=== PATIENT | male | born 1930 | race African-American/Black ===

== ENCOUNTER 2018-08-24 21:28 | Inpatient (IN) | payer MEDICARE, BC ==
[2018-08-24] MEDS ORDERED: QUEtiapine TAB* 25 MG PO ONE (22:14)
--- NOTE | 2018-08-24 22:23 | ED ---
Psychiatric Complaint - HPI Summary HPI Summary: This patient is an 88 year old M brought in by police to ED with a chief complaint of dementia. Per the police, he was watching a TV show that was talking about [employer] and [employer] and how [employer] is going to start taking over everything. 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 He wanted to watch it with him but she wouldnt, so he started following her around the house. She eventually closed herself in the bedroom and called the police. Per his , he hides his medication and hasnt taken his medications for over 2 weeks. The patient rates the pain 0/10 in severity. Symptoms aggravated by nothing. Symptoms alleviated by nothing. - History Of Current Complaint Chief Complaint: EDPsychosocial Time Seen by Provider: 08/24/18 21:55 Hx Obtained From: Patient, Other: - police Onset/Duration: Sudden Onset, Lasting Hours, Still Present Timing: Constant Severity Currently: None Aggravating Factor(s): Nothing Alleviating Factor(s): Nothing Has Suicidal: Denies: Thoughts Has Homicidal: Denies: Thoughts - Allergies/Home Medications Allergies/Adverse Reactions: Allergies Allergy/AdvReac Type Severity Reaction Status Date / Time No Known Allergies Allergy Verified 08/24/18 21:40 Home Medications: Home Medications Quetiapine Fumarate [Seroquel 50 mg tab] 1 tab PO QPM 08/24/18 [History Confirmed 08/24/18] PMH/Surg Hx/FS Hx/Imm Hx Endocrine/Hematology History: Denies: Hx Sickle Cell Disease Cardiovascular History: Denies: Other Cardiovascular Problems/Disorders Respiratory History: Denies: Other Respiratory Problems/Disorders GI History: Denies: Other GI Disorders History: Denies: Other Problems/Disorders Musculoskeletal History: Denies: Other Musculoskeletal History Sensory History: Denies: Hx Contacts or Glasses, Hx Hearing Aid Opthamlomology History: Denies: Hx Contacts or Glasses Neurological History: Denies: Other Neuro Impairments/Disorders - Cancer History Cancer Type, Location and Year: prostate - Surgical History Surgery Procedure, Year, and Place: TONSILS CHILD. SEED IMPLANTATION IN PROSTATE. laproscopic ileocolectomy 03/03/13 Hx Anesthesia Reactions: No Infectious Disease History: No Infectious Disease History: Denies: Traveled Outside the [place] in Last 30 Days - Family History Known Family History: Negative: Blood Disorder - Social History Alcohol Use: Occasionally Substance Use Type: Reports: None Smoking Status (MU): Former Smoker Review of Systems Negative: Fever Neurological: Other - patient has dementia All Other Systems Reviewed And Are Negative: Yes Physical Exam - Summary Physical Exam Summary: VITAL SIGNS: Reviewed. GENERAL: Patient is a well-developed and nourished MALE who is lying comfortable in the stretcher. Patient is not in any acute respiratory distress. HEAD AND FACE: No signs of trauma. No ecchymosis, hematomas or skull depressions. No sinus tenderness. EYES: PERRLA, EOMI x 2, No injected conjunctiva, no nystagmus. EARS: Hearing grossly intact. Ear canals and tympanic membranes are within normal limits. MOUTH: Oropharynx within normal limits. NECK: Supple, trachea is midline, no adenopathy, no JVD, no carotid bruit, no c- spine tenderness, neck with full ROM. CHEST: Symmetric, no tenderness at palpation LUNGS: Clear to auscultation bilaterally. No wheezing or crackles. CVS: Regular rate and rhythm, S1 and S2 present, no murmurs or gallops appreciated. ABDOMEN: Soft, non-tender. No signs of distention. No rebound no guarding, and no masses palpated. Bowel sounds are normal. EXTREMITIES: FROM in all major joints, no edema, no cyanosis or clubbing. NEURO: No acute neurological deficits. Speech is normal and follows commands. Alert oriented x2 however he is delusional considering his talk on [employer] and [employer] SKIN: Dry and warm Triage Information Reviewed: Yes Vital Signs On Initial Exam: Initial Vitals Temp Pulse Resp BP Pulse Ox 99.6 F 114 16 196/106 97 08/24/18 21:38 08/24/18 21:38 08/24/18 21:38 08/24/18 21:38 08/24/18 21:38 Vital Signs Reviewed: Yes Diagnostics - Vital Signs Vital Signs Temp Pulse Resp BP Pulse Ox 08/24/18 21:38 99.6 F 114 16 196/106 97 - Laboratory Result Diagrams: 08/24/18 22:57 08/24/18 22:57 Lab Statement: Any lab studies that have been ordered have been reviewed, and results considered in the medical decision making process. Course/Dx - Course Assessment/Plan: This patient is an 88 year old M brought in by police to ED with a chief complaint of dementia. Per the police, he was watching a TV show that was talking about [employer] and [employer] and how [place] is going to start taking over everything. 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 He wanted to watch it with him but she wouldnt, so he started following her around the house. She eventually closed herself in the bedroom and called the police. Per his , he hides his medication and hasnt taken his medications for over 2 weeks. Patient is cleared at 0000 for MHE. MHE done at 0309. Dr. Guardado will be admitting the patient with dx of psychosis. - Differential Dx/Clinical Impression Differential Diagnosis/HQI/PQRI: Positive: Other - psychosis Provider Diagnosis: Psychosis Discharge - Sign-Out/Discharge Documenting (check all that apply): Patient Departure - admit Patient Received Moderate/Deep Sedation with Procedure: No - Discharge Plan Condition: Stable Disposition: ADMITTED TO [facility] Referrals: Stefany Duncan, SHEET CUTTING OPERATOR [Primary Care Provider] - - Attestation Statements Document Initiated by Scribe: Yes Documenting Scribe: Alexei Kaplan Provider For Whom Dianeibe is Documenting (Include Credential): Yocasta Hopson MD Scribe Attestation: Alexei Ruby, scribed for Yocasta Hopson MD on 08/25/18 at 0310. Status of Scribe Document: Ready
[2018-08-24 23:02] LABS: ABS Basophils 0 10^3/ul (0-0.2); ABS Eosinophils 0 10^3/ul (0-0.6); ABS Lymphocytes 0.7 10^3/ul (1.0-4.8); ABS Monocytes 0.7 10^3/ul (0-0.8); ABS Neutrophils 6.1 10^3/ul (1.5-7.7); ABS Nucleated RBC 0 10^3/ul; Eosinophil % 0 %; Hematocrit 37 % (42-52); Hemoglobin 12.3 g/dl (14.0-18.0); Lymphocyte % 9.4 %; Mean Corpuscular HGB Conc 33 g/dl (31-36); Mean Corpuscular Hemoglobin 30 pg (27-31); Mean Corpuscular Volume 92 fL (80-94); Mean Platelet Volume 8.3 fL (7.4-10.4); Nucleated Red Blood Cells % 0.1; Platelet Count 306 10^3/ul (150-450); Red Blood Count 4.06 10^6/ul (4.00-5.40); Red Cell Distribution Width 14 % (10.5-15); White Blood Count 7.6 10^3/ul (3.5-10.8)
[2018-08-24 23:04] LABS: Urine Appearance Clear; Urine Bilirubin Negative (Negative); Urine Blood Negative (Negative); Urine Color Yellow; Urine Glucose Negative (Negative); Urine Ketones Negative (Negative); Urine Nitrite Negative (Negative); Urine Protein Negative (Negative); Urine Specific Gravity 1.025 (1.010-1.030); Urine Urobilinogen Negative (Negative)
[2018-08-24 23:13] LABS: Barbiturates Urine Screen None Detected (None Detect); Benzodiazepine Urine Screen None Detected (None Detect); Urine Cannabinoids Screen None Detected (None Detect)
[2018-08-24 23:19] LABS: ALT 12 U/L (7-52); AST 16 U/L (13-39); Albumin 4.2 g/dL (3.2-5.2); Albumin/Globulin Ratio 1.3 (1-3); Alkaline Phosphatase 47 U/L (34-104); Anion Gap 8 mmol/L (2-11); Blood Urea Nitrogen 24 mg/dL (6-24); CO2 Carbon Dioxide 23 mmol/L (22-32); Calcium 9.7 mg/dL (8.6-10.3); Chloride 110 mmol/L (101-111); EGFR African American 97.4 (>60); EGFR Non-African American 80.5 (>60); Globulin 3.3 g/dL (2-4); Glucose 143 mg/dL (70-100); Potassium 4.1 mmol/L (3.5-5.0); Sodium 141 mmol/L (135-145); Total Protein 7.5 g/dL (6.4-8.9)
--- OUTSIDE RECORDS SUMMARY | 2018-08-24 23:21 | XMS REPORT | Continuity of Care Document ---
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 Hobbies drumming Tobacco Use Start: Unknown Smoked Briefly as A Teen. ETOH Use Avoids Alcohol Now Except Rarely. Enjoy Exercising Enjoys exercising goes to the gym every noght, does not exercise every night, he gets into the whirlpool and the sauna more than he exercises. Allergies, Adverse Reactions, Alerts Date Description Reaction Status Severity Comments 08/11/2007 Peanuts Active 09/14/2011 Peanut-containing Drug Products Active Medications Medication Date Status Form Strength Qnty SIG Indications Ordering Provider Seroquel 07/23/ Active Tablets 50mg 30tabs take one F03.91 Shawnti 2019 tablet by Damion Duncan, mouth at [employer] bedtime No Active 05/21/ Hx Unknown Medications 2017 - 2017 Seroquel 05/21/ Hx Tablets 25mg 30tabs 1 by mouth F03.91 Shawnti 2018 - every night Damion Duncan, 07/23/ at bedtime [employer] 2019 Depend 01/10/ Hx Misc 60unit wear daily, N39.3 Tomywaubreyi Fit-Flex 2016 - s change as Damion Duncan Underwearfor 05/21/ needed [employer] Men 2018 Oxybutynin 11/17/ Hx Tablets ER 5mg 90tabs take one by Stefany Chloride ER 2012 - 24HR mouth every Damion Duncan, 05/21/ day for [employer] 2018 urine leakage and frequency Cod Liver Oil 11/17/ Hx Capsules 1000mg daily Tomywcalli 2012 - Damion Duncan, 05/21/ [employer] 2018 Cipro 10/30/ Hx Tablets 250mg 10tabs 1 pill po 599.0 Stefany 2012 - bid for 5 R. 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 2012 Oxybutynin 12/23/ Hx Tablets 5mg 60tabs 1 Up To Q6H Evan Chloride 2007 - prn Urinary Lessinger 09/13/ Frequency , M.DMaggie 2011 Gentamycin 06/27/ Hx Solution 3mg/ml 5ml 2 drops qid Darlene Up 2003 - in each Soboroff, 07/16/ affected eye Manuel 2005 until clear Viagra 12/28/ Hx Tablets 50mg 6tabs 1/2-1 tab Evan 2003 - before Roxyinger 06/15/ intercourse Manuel 2004 Detrol La 12/28/ Hx Capsules 4mg 30caps 1 po qd for Evan 2003 - urinary Lessinger 08/11/ urgency , Manuel 2007 Hue Tabs 11/17/ Hx Tablets 180mg 90tabs 1 po qd Wilberto Herron 2004 - Acosta, 11/17/ Manuel 2013 Physical 04/03/ Hx DX: Stiff L Evan Therapy 2001 - Thumb Rx:as Ana 08/11/ IndicatedM.D. 2007 Upto 6 Visits Albuterol 11/21/ Hx Inhaler 2units two puffs Evan 2001 - qid and prn Ana 11/17/ Manuel 2012 Ultravate 11/21/ Hx Ointment 0.05% 15gm apply to Evan 2001 - affected [facility] 11/17/ areas qd-bid , Manuel 2012 Immunizations CPT Code Status Date Vaccine Lot # [id number] Given 04/25/2017 Zoster Vaccine [id number] Given 04/25/2017 Prevnar-13 Pneumococcal Conjugate Vaccine [id number] Given 12/29/2003 DT (Adult) [id number] Given 04/17/2002 Influenza Virus Vaccine, 3 Yrs And Above [id number] Refused 04/25/2017 Influenza Vaccine High Dose PF Vital Signs Date Vital Result Comment 07/23/2018 4:28pm Weight 146.00 lb Weight 66.226 kg BP Systolic 140 mmHg BP Diastolic 80 mmHg Heart Rate 68 /min Body Temperature 97.7 F Respiratory Rate 20 /min 06/11/2018 4:35pm Weight 142.00 lb Weight 64.411 kg BP Systolic 159 mmHg BP Diastolic 84 mmHg Heart Rate 88 /min Body Temperature 99.6 F O2 % BldC Oximetry 98 % 05/21/2018 4:08pm Weight 139.00 lb Weight 63.050 kg BP Systolic 123 mmHg BP Diastolic 67 mmHg Heart Rate 76 /min Body Temperature 98.6 F O2 % BldC Oximetry 97 % 04/25/2017 1:38pm Weight 137.00 lb Weight 62.143 kg BP Systolic 128 mmHg BP Diastolic 68 mmHg Heart Rate 65 /min Body Temperature 98.4 F Respiratory Rate 19 /min O2 % BldC Oximetry 98.4 % 04/10/2017 11:59am Weight 146.00 lb Weight 66.226 kg BP Systolic 140 mmHg BP Diastolic 70 mmHg Heart Rate 60 /min Body Temperature 98.6 F 03/01/2017 2:00pm Weight 141.00 lb Weight 63.958 kg BP Systolic 154 mmHg BP Diastolic 94 mmHg Heart Rate 56 /min Body Temperature 96.6 F Respiratory Rate 20 /min Height 52 inches 4'4" BMI (Body Mass Index) 36.7 kg/m2 O2 % BldC Oximetry 99 % 01/10/2017 2:25pm Weight 141.00 lb Weight 63.958 kg BP Systolic 120 mmHg BP Diastolic 80 mmHg Heart Rate 72 /min Body Temperature 98.9 F Respiratory Rate 14 /min 03/19/2013 11:58am Weight 156.00 lb Weight 70.762 kg BP Systolic 140 mmHg BP Diastolic 74 mmHg Heart Rate 80 /min 11/17/2012 11:59am Weight 165.00 lb Weight 74.844 kg BP Systolic 160 mmHg BP Diastolic 94 mmHg Heart Rate 76 /min Height 63 inches 5'3" BMI (Body Mass Index) 29.2 kg/m2 10/30/2012 1:18pm Weight 164.00 lb Weight 74.390 kg BP Systolic 138 mmHg BP Diastolic 76 mmHg Heart Rate 82 /min Body Temperature 97.8 F Height 64.5 inches 5'4.50" BMI (Body Mass Index) 27.7 kg/m2 09/14/2011 1:40pm Weight 172.00 lb Weight 78.019 kg BP Systolic 150 mmHg BP Diastolic 72 mmHg Heart Rate 56 /min Body Temperature 96.2 F Height 65.5 inches 5'5.50" BMI (Body Mass Index) 28.2 kg/m2 08/23/2011 1:48pm Weight 175.00 lb Weight 79.380 kg BP Systolic 130 mmHg BP Diastolic 66 mmHg Heart Rate 76 /min Body Temperature 97.3 F 05/11/2010 2:45pm Weight 180.00 lb Weight 81.648 kg BP Systolic 134 mmHg BP Diastolic 78 mmHg Heart Rate 72 /min 06/28/2009 5:00pm Weight 184.00 lb Weight 83.462 kg BP Systolic 170 mmHg BP Diastolic 100 mmHg Heart Rate 86 /min Body Temperature 99.1 F Respiratory Rate 18 /min 01/31/2009 10:15am Weight 189.00 lb Weight 85.730 kg BP Systolic 140 mmHg BP Diastolic 80 mmHg Heart Rate 72 /min Body Temperature 97.6 F 06/18/2008 11:32am Weight 187.00 lb Weight 84.823 kg BP Systolic 146 mmHg BP Diastolic 78 mmHg Heart Rate 68 /min Height 64.5 inches 5'4.50" BMI (Body Mass Index) 31.6 kg/m2 12/24/2007 3:03pm Weight 190.00 lb Weight 86.184 kg BP Systolic 150 mmHg BP Diastolic 96 mmHg Heart Rate 84 /min Body Temperature 97.2 F Height 64.5 inches 5'4.50" BMI (Body Mass Index) 32.1 kg/m2 12/10/2007 1:22pm Weight 191.00 lb Weight 86.638 kg BP Systolic 144 mmHg BP Diastolic 82 mmHg Heart Rate 72 /min Body Temperature 97.0 F Height 64.5 inches 5'4.50" BMI (Body Mass Index) 32.3 kg/m2 08/11/2007 1:45pm Weight 193.00 lb Weight 87.545 kg BP Systolic 152 mmHg BP Diastolic 86 mmHg Heart Rate 76 /min Height 64.5 inches 5'4.50" BMI (Body Mass Index) 32.6 kg/m2 Last Menstrual Period 0 O2 % BldC Oximetry 96 % 01/14/2006 2:18pm Weight 192.00 lb Weight 87.091 kg BP Systolic 120 mmHg BP Diastolic 60 mmHg Heart Rate 64 /min Height 64.5 inches 5'4.50" BMI (Body Mass Index) 32.4 kg/m2 07/16/2005 12:52pm Weight 192.00 lb Weight 87.091 kg BP Systolic 162 mmHg BP Diastolic 86 mmHg Heart Rate 76 /min Height 64.5 inches 5'4.50" BMI (Body Mass Index) 32.4 kg/m2 06/15/2005 11:52am Weight 195.00 lb Weight 88.452 kg BP Systolic 130 mmHg BP Diastolic 80 mmHg Height 64.5 inches 5'4.50" BMI (Body Mass Index) 33.0 kg/m2 06/27/2004 4:49pm Weight 200.00 lb Weight 90.720 kg BP Systolic 140 mmHg BP Diastolic 80 mmHg Height 64.5 inches 5'4.50" BMI (Body Mass Index) 33.8 kg/m2 12/29/2003 12:49pm Weight 195.00 lb Weight 88.452 kg BP Systolic 152 mmHg BP Diastolic 81 mmHg Heart Rate 73 /min Height 64.5 inches 5'4.50" BMI (Body Mass Index) 33.0 kg/m2 04/17/2002 11:55am Weight 199.00 lb Weight 90.300 kg BP Systolic 133 mmHg BP Diastolic 62 mmHg 04/03/2002 10:43am Weight 198.00 lb Weight 89.800 kg BP Systolic 130 mmHg BP Diastolic 80 mmHg 11/21/2001 1:46pm Weight 200.00 lb BP Systolic 140 mmHg BP Diastolic 80 mmHg Heart Rate 78 /min Respiratory Rate 18 /min Results Test Date Facility Test Result H/L Range Note CBC Auto Diff 03/01/2017 [facility] White Blood 4.8 10^3/uL N 3.5-10.8 [phone] Count Red Blood Count 4.11 10^6/uL N 4.0-5.4 Hemoglobin 12.7 g/dL Low 14.0-18.0 Hematocrit 38 % Low 42-52 Mean Corpuscular Volume 93 fL N 80-94 Mean Corpuscular Hemoglobin 31 pg N 27-31 Mean Corpuscular HGB Conc 33 g/dL N 31-36 Red Cell Distribution Width 14 % N 10.5-15 Platelet Count 235 10^3/uL N 150-450 Mean Platelet Volume 9 um3 N 7.4-10.4 Abs Neutrophils 2.8 10^3/uL N 1.5-7.7 Abs Lymphocytes 1.5 10^3/uL N 1.0-4.8 Abs Monocytes 0.5 10^3/uL N 0-0.8 Abs Eosinophils 0 10^3/uL N 0-0.6 Abs Basophils 0 10^3/uL N 0-0.2 Abs Nucleated RBC 0 10^3/uL N Granulocyte % 57.8 % N 38-83 Lymphocyte % 31.2 % N 25-47 Monocyte % 9.8 % High 1-9 Eosinophil % 0.3 % N 0-6 Basophil % 0.9 % N 0-2 Nucleated Red Blood Cells % 0.1 N Comp Metabolic Panel 03/01/2017 [facility] Sodium 142 mmol/L N 133-145 [phone] Potassium 4.6 mmol/L N 3.5-5.0 Chloride 109 mmol/L N 101-111 Co2 Carbon Dioxide 26 mmol/L N 22-32 Anion Gap 7 mmol/L N 2-11 Glucose 105 mg/dL High 70-100 Blood Urea Nitrogen 13 mg/dL N 6-24 Creatinine 0.85 mg/dL N 0.67-1.17 BUN/Creatinine Ratio 15.3 N 8-20 Calcium 9.5 mg/dL N 8.6-10.3 Total Protein 7.0 g/dL N 6.4-8.9 Albumin 4.2 g/dL N 3.2-5.2 Globulin 2.8 g/dL N 2-4 Albumin/Globulin Ratio 1.5 N 1-3 Total Bilirubin 0.30 mg/dL N 0.2-1.0 Alkaline Phosphatase 40 U/L N 34-104 Alt 19 U/L N 7-52 Egfr Non- 85.1 N >60 Egfr 109.4 N >60 1 Ast 29 U/L N 13-39 Laboratory test 03/01/2017 [facility] TSH (Thyroid 2.05 mcIU/mL N 0.34-5.60 2 finding [phone] Stim Horm) Vitamin B12 239 pg/mL N 180-914 3 Lipid Profile 03/01/2017 [facility] Triglycerides 48 mg/dL N 4 (Trig/Chol/HDL) [phone] Cholesterol 219 mg/dL N 5 HDL Cholesterol 74.7 mg/dL N 6 LDL Cholesterol 135 mg/dL N 7 CBC Auto Diff 02/06/2013 [facility] White Blood 5.3 10^3/uL 4.8-10.8 [phone] Count Red Blood Count 3.98 10^6/uL Low 4.0-5.4 Hemoglobin 12.2 g/dL Low 14.0-18.0 Hematocrit 37 % Low 42-52 Mean Corpuscular Volume 93 fL 80-94 Mean Corpuscular Hemoglobin 31 pg 27-31 Mean Corpuscular HGB Conc 33 g/dL 31-36 Red Cell Distribution Width 13 % 10.5-15 Platelet Count 212 10^3/uL 150-450 Mean Platelet Volume 9 um3 7.4-10.4 Abs Neutrophils 3.2 10^3/uL 1.5-7.7 Abs Lymphocytes 1.4 10^3/uL 1.0-4.8 Abs Monocytes 0.6 10^3/uL 0-0.8 Abs Eosinophils 0.1 10^3/uL 0-0.6 Abs Basophils 0 10^3/uL 0-0.2 Abs Nucleated RBC 0.01 10^3/uL Granulocyte % 59.2 % 38-83 Lymphocyte % 27.0 % 25-47 Monocyte % 11.1 % High 1-9 Eosinophil % 1.8 % 0-6 Basophil % 0.9 % 0-2 Nucleated Red Blood Cells % 0.1 Basic Metabolic 02/06/2013 [facility] Sodium 137 mmol /L 133-145 Panel [phone] Potassium 4.4 mmol/L 3.5-5.0 Chloride 106 mmol/L 101-111 Co2 Carbon Dioxide 24.0 mmol/L 22-32 Anion Gap 7.0 mmol/L 2-11 Glucose 87 mg/dL 70-100 Blood Urea Nitrogen 23 mg/dL 6-24 Creatinine 0.90 mg/dL 0.50-1.40 BUN/Creatinine Ratio 25.6 High 8-20 Calcium 9.0 mg/dL 8.1-9.9 Egfr Non- 80.4 >60 Egfr 103.4 >60 8 Type & Screen 02/06/2013 [facility] Patient Blood O Positive [phone] Type Antibody Screen NEGATIVE Surgical Pathology 12/29/2012 [facility] S RUN DATE: 9 [phone] 12/31/ <SEE NOTE> Urine DIP 11/17/2012 In House Lab Leukocytes NEG Neg (607)- - Urine Nitrites NEG Neg Urine pH 5 5-6 Total Protein, Urine NEG Neg Urine Glucose NORM Norm Urine Ketones NEG Neg Urobilinogen NORM Norm Urine Bilirubin NEG Neg Urine Blood NEG Neg Specific Callao N/A Low 1.01-1.02 Urine DIP 10/30/2012 In House Lab Leukocytes 1+ High Neg (607)- - Urine Nitrites NEG Neg Urine pH 5 5-6 Total Protein, Urine 2+ High Neg Urine Glucose NORM Norm Urine Ketones NEG Neg Urobilinogen NORM Norm Urine Bilirubin NEG Neg Urine Blood 150 High Neg Specific Callao 1.020 1.01-1.02 Urine Culture And 10/30/2012 [facility] Urine Culture (SEE NOTE) 10 Sensitivities [phone] Laboratory test 10/30/2012 [facility] PSA Screening 0.0 ng/mL 0-4.0 11 finding [phone] Comp Metabolic 10/30/2012 [facility] Sodium 141 mmol/ L 133-1 Panel [phone] Potassium 4.3 mmol/L 3.5-5.0 Chloride 112 mmol/L High 101-111 Co2 Carbon Dioxide 24.0 mmol/L 22-32 Anion Gap 5.0 mmol/L 2-11 Glucose 99 mg/dL 70-100 Blood Urea Nitrogen 16 mg/dL 6-24 Creatinine 0.90 mg/dL 0.50-1.40 BUN/Creatinine Ratio 17.8 8-20 Calcium 9.5 mg/dL 8.1-9.9 Total Protein 6.3 g/dL 6.2-8.1 Albumin 3.7 g/dL 3.2-5.2 Globulin 2.6 g/dL 2-4 Albumin/Globulin Ratio 1.4 1-3 Total Bilirubin 0.7 mg/dL 0.4-1.5 Alkaline Phosphatase 44 U/L 30-110 Alt 18 U/L 14-54 Ast 18 U/L 12-42 Egfr Non- 80.6 >60 Egfr 103.6 >60 12 CBC No Diff 10/30/2012 [facility] White Blood 7.8 10^ 3/uL 4.8-10.8 [phone] Count Red Blood Count 4.02 10^6/uL 4.0-5.4 Hemoglobin 12.1 g/dL Low 14.0-18.0 Hematocrit 37 % Low 42-52 Mean Corpuscular Volume 92 fL 80-94 Mean Corpuscular Hemoglobin 30 pg 27-31 Mean Corpuscular HGB Conc 33 g/dL 31-36 Red Cell Distribution Width 14 % 10.5-15 Platelet Count 219 10^3/uL 150-450 Mean Platelet Volume 10 um3 7.4-10.4 Urine DIP 09/14/2011 In House Lab Leukocytes NEG Neg (607)- - Urine Nitrites NEG Neg Urine pH 5 5-6 Total Protein, Urine NEG Neg Urine Glucose NORM Norm Urine Ketones NEG Neg Urobilinogen NORM Norm Urine Bilirubin NEG Neg Urine Blood NEG Neg Specific [place] NA Low 1.01-1.02 Laboratory test 09/14/2011 [facility] TSH 1.47 MIU/ ML 0.34-5.60 finding [phone] Lipid Profile 09/14/2011 [facility] Triglyceride 70 mg/dL 40-200 (Trig/Chol/HDL) [phone] Cholesterol 198 mg/dL Less Than 200 13 High Density Lipoprotein 47 mg/dL 40-60 14 Cholesterol/HDL Ratio 4.21 AVERAGE 1-4.97 Low Density Lipoprotein 137 mg/dL High Less Than 100 15 Comp Metabolic Panel 09/14/2011 [facility] Sodium 137 mmol/L 135-145 [phone] Potassium 4.4 mmol/L 3.5-5.0 Chloride 104 mmol/L 101-111 Co2 (Carbon Dioxide) 26.0 mmol/L 22-32 Anion Gap 7.0 mmol/L 2-11 16 Glucose 77 mg/dL 70-100 BUN 23 mg/dL 6-24 Creatinine 0.8 mg/dL 0.50-1.40 One Over Creatinine 1.25 BUN/Creatinine Ratio 28.8 High 8-20 Calcium 8.8 mg/dL 8.1-9.9 Total Protein 6.9 GM/DL 6.2-8.1 Albumin 3.6 GM/DL 3.2-5.2 Globulin 3.3 GM/DL 2-4 Albumin/Globulin Ratio 1.1 1-3 Bilirubin Total 0.7 mg/dL 0.4-1.5 17 Alkaline Phosphatase 45 U/L 39-117 Alt (SGPT) 24 U/L 17-63 Ast (Sgot) 25 U/L 12-42 eGFR Non- 92.5 > 60 eGFR 119.0 > 60 18 CBC Auto Diff 09/14/2011 [facility] White Blood 5.3 CUMM 4.8-10.8 [phone] Count Red Cell Count 4.05 CUMM Low 4.6-6.2 Hemoglobin 13.0 g/dL Low 14.0-18.0 Hematocrit 37 % Low 42-52 Mean Corpuscular Volume 92 um3 80-94 Mean Corpuscular Hemoglob 32 pg High 27-31 Mean Corpuscular HGB Cone 35 g/dL 32-36 Redcell Distribution WDTH 13 % 10.5-15 Platelet Count 237 CUMM 150-450 Mean Platelet Volume 9.7 um3 7.4-10.4 Gran % 58.2 % 38-83 Lymph % 32.4 % 25-47 Mononuclear % 8.4 % 1-9 Eosinophil % 0.6 % 0-6 Basophil % 0.4 % 0-2 Abs Lymphs 1.7 1.0-4.8 Abs Mononuclear 0.4 0-0.8 Absolute Neutrophil Count 3.1 1.5-7.7 Abs Eosinophils 0 0-0.6 Abs Basophils 0 0-0.2 Laboratory test 09/14/2011 [facility] PSA 0.0 NG/ML 0-4 19 finding [phone] Laboratory test 06/18/2008 [facility] Vitamin B-12 505 pg/ mL 20 finding [phone] Folic Acid(Folate)Serum 20.6 ng/ml 21 CBC 06/18/2008 [facility] WBC 5.4 x103 4.3-10.9 [phone] RBC 4.24 x106 Low 4.70-6.20 Hemoglobin 12.5 g/dL Low 13.0-17.0 Hematocrit 38.0 % Low 39.0-50.0 MCV 89.6 fl 82.0-98.0 MCH 29.5 pg 27.5-33.5 MCHC 32.9 g/dL 32.0-36.0 RDW 13.2 % 11.5-14.5 Platelet Count 243 x103 130-400 MPV 11.2 fl High 6.5-10.5 Segmented Neutrophils 61.9 % 44.0-74.0 Lymphocytes 26.5 % 15.0-45.0 Monocytes 10.3 % 2.0-13.0 Eosinophils 0.7 % 0.0-6.0 Basophils 0.6 % 0.0-2.0 Neutrophil Absolute 3.3 x103 1.4-7.0 Lymphocytes Absolute 1.4 x103 1.0-3.4 Monocyte Absolute 0.6 x103 0.2-1.0 Eosinophil Absolute 0.0 x103 0.0-0.5 Basophil Absolute 0.0 x103 0.0-0.2 Laboratory test 06/18/2008 [facility] Sedimentation Rate 19 MM/HR High 0-15 finding [phone] Urine DIP 12/24/2007 In House Lab Leukocytes NEG Neg (607)- - Urine Nitrites NEG Neg Urine pH 5 5-6 Total Protein, Urine NEG Neg Urine Glucose NORM Norm Urine Ketones NEG Neg Urobilinogen NORM Norm Urine Bilirubin NEG Neg Urine Blood NEG Neg Specific [place] N/A Low 1.01-1.02 Urine DIP 08/11/2007 In House Lab Leukocytes NEG Neg (607)- - Urine Nitrites NEG Neg Urine pH 5 5-6 Total Protein, Urine NEG Neg Urine Glucose NORM Norm Urine Ketones NEG Neg Urobilinogen NORM Norm Urine Bilirubin NEG Neg Urine Blood NEG Neg Specific [place] NORM Low 1.01-1.02 Laboratory 08/11/2007 [facility] TSH (Thyrotropin) 2.320 0.350-5.500 test finding [phone] uIU/ml GFR (Calculated) >60 22 Lipid 08/11/2007 [facility] Cholesterol, 227 mg/dL High 120-200 23 Profile [phone] Total HDL Cholesterol 49 mg/dL 40-60 LDL Cholesterol, Calc. 159 mg/dL AB 24 Triglycerides 93 mg/dL 25 LDL/HDL Cholesterol 3.2 26 Chol/HDL Cholesterol 4.6 27 CBC 08/11/2007 [facility] WBC 6.3 x103 4.3-10.9 [phone] RBC 4.42 x106 Low 4.70-6.20 Hemoglobin 13.4 g/dL 13.0-17.0 Hematocrit 40.0 % 39.0-50.0 MCV 90.5 fl 82.0-98.0 MCH 30.3 pg 27.5-33.5 MCHC 33.5 g/dL RDW 13.0 % 11.5-14.5 Platelet Count 251 x103 130-400 MPV 11.3 fl High 6.5-10.5 Segmented Neutrophils 47.6 % 44.0-74.0 Lymphocytes 40.4 % 15.0-45.0 Monocytes 10.6 % 2.0-13.0 Eosinophils 0.9 % 0.0-6.0 Basophils 0.5 % 0.0-2.0 Neutrophil Absolute 3.0 x103 1.4-7.0 Lymphocytes Absolute 2.5 x103 1.0-3.4 Monocyte Absolute 0.7 x103 0.2-1.0 Eosinophil Absolute 0.1 x103 0.0-0.5 Basophil Absolute 0.0 x103 0.0-0.2 Laboratory test 08/11/2007 [facility] PSA <0.1 ng/ml 0.0 -4.0 28 finding [phone] Comprehensive 08/11/2007 [facility] Glucose 94 mg/dL 70- 100 Metabolic [phone] BUN 23 mg/dL 5-32 Creatinine, Serum 1.1 mg/dL 0.6-1.7 Sodium 142 mmol/L 136-146 Potassium 4.8 mmol/L 3.5-5.3 Chloride 109 mmol/L 98-110 Carbon Dioxide 22 mmol/L 20-32 Albumin 4.5 g/dL 3.5-4.7 Protein, Total 7.5 g/dL 6.4-8.2 Calcium 9.9 mg/dL 8.4-10.4 Alkaline Phosphatase 50 U/L 10-118 Sgot (Ast) 24 U/L 3-40 SGPT (Alt) 23 U/L 7-50 Bilirubin, Total 0.30 mg/dL 0.30-1.[address] [facility] Surgical --- 29 Pathology [phone] Pathology <SEE NOTE> Surgical 02/14/2006 [facility] Surgical --- 30 Pathology [phone] Pathology <SEE NOTE> CBC 06/15/2005 [facility] WBC 6.0 x103 4.3- [phone] 10.9 RBC 4.46 x106 4.20-5.60 Hemoglobin 13.7 g/dL 13.0-17.0 Hematocrit 40.7 % 39.0-50.0 MCV 91.3 fl 82.0-98.0 MCH 30.7 pg 27.5-33.5 MCHC 33.7 g/dL 32.0-36.0 RDW 13.1 % 11.5-14.5 Platelet Count 241 x103 130-400 MPV 9.9 fl 6.5-10.5 Segmented Neutrophils 65.6 % 44.0-74.0 Lymphocytes 24.6 % 15.0-45.0 Monocytes 8.8 % 2.0-13.0 Eosinophils 0.8 % 0.0-6.0 Basophils 0.2 % 0.0-2.0 Neutrophil Absolute 3.9 x103 1.4-7.0 Lymphocytes Absolute 1.5 x103 1.0-3.4 Monocyte Absolute 0.5 x103 0.2-1.0 Eosinophil Absolute 0.0 x103 0.0-0.5 Basophil Absolute 0.0 x103 0.0-0.2 Comprehensive Metabolic 06/15/2005 [facility] Glucose 84 mg /dL 70-100 [phone] Creatinine, Serum 1.1 mg/dL 0.6-1.7 Sodium 141 mmol/L 136-146 Potassium 4.5 mmol/L 3.5-5.3 Chloride 109 mmol/L 98-110 Carbon Dioxide 19 mmol/L Low 20-32 Albumin 4.3 g/dL 3.5-4.7 Protein, Total 7.1 g/dL 6.4-8.2 Calcium 9.1 mg/dL 8.4-10.4 Alkaline Phosphatase 48 U/L 10-118 Sgot (Ast) 32 U/L High 3-30 SGPT (Alt) 30 U/L 7-40 Bilirubin, Total 0.39 mg/dL 0.30-1.20 BUN 19 mg/dL 5-32 Lipid 06/15/2005 [facility] Cholesterol, 219 mg/dL High 120-200 31 Profile [phone] Total HDL Cholesterol 55 mg/dL 40-60 LDL Cholesterol, Calc. 146 mg/dL AB 32 Triglycerides 92 mg/dL 33 LDL/HDL Cholesterol 2.7 34 Chol/HDL Cholesterol 4.0 35 Laboratory test 06/15/2005 [facility] PSA 0.1 ng/ml 0.0- 4.0 36 finding [phone] GFR (Calculated) >60 37 Urine DIP 12/29/2003 In House Lab Leukocytes NEG Neg (607)- - Urine Nitrites NEG Neg Urine pH 5 5-6 Total Protein, Urine NEG Neg Urine Glucose NROM Norm Urine Ketones NEG Neg Urobolinogen NORMNEG Norm Urine Bilirubin NEG Neg Urine Blood NEG Neg Specific [place] NA Low 1.01-1.02 Laboratory test 03/18/2002 [facility] Pathology Report DR DAILY AT finding JH Urine DIP 11/21/2001 In House Lab Leukocytes NEG Neg (607)- - Urine Nitrites NEG Neg Urine pH 5 5-6 Total Protein, Urine NEG Neg Urine Glucose NORM Norm Urine Ketones NEG Neg Urobolinogen NORM Norm Urine Bilirubin NEG Neg Urine Blood NEG Neg Comprehensive 11/21/2001 [facility] Glucose 95 mg/dL 66.0 - 126.0 Metabolic [phone] BUN 14 mg/dL 5.0 - 32.0 Creatinine, Serum 0.9 mg/dL 0.6 - 1.5 Sodium 140 mmol/L 135.0 - 146.0 Potassium 4.5 mmol/L 3.6 - 5.0 Chloride 108 mmol/L 98.0 - 108.0 Carbon Dioxide 26 mmol/L 23.0 - 33.0 Albumin 4.0 g/dL 3.3 - 4.5 Protein, Total 7.1 g/dL 6.2 - 8.0 Calcium 9.1 mg/dL 8.1 - 10.1 38 Alkaline Phosphatase 56 U/L 45.0 - 120.0 Sgot (Ast) 35 U/L 9.0 - 43.0 SGPT (Alt) 33 U/L 11.0 - 51.0 Bilirubin, Total 0.40 mg/dL 0.2 - 1.3 Laboratory test 11/21/2001 [facility] PSA 4.9 ng/ml High 0 - 4 39 finding [phone] Lipid Profile 11/21/2001 [facility] Triglycerides 98 mg/dL 23.0 - [phone] 253.0 Cholesterol, Total 212 mg/dL High 120.0 - 200.0 40 HDL Cholesterol 40 mg/dL 35.0 - 9999.0 LDL Cholesterol 152 mg/dL AB 41 LDL/HDL Cholesterol 3.8 AB 42 Chol/HDL Cholesterol 5.3 AB 43 CBC 08/27/2000 [facility] WBC 4.8 1,000 4.3 - 10.9 [phone] RBC 4.33 1,000,000 4.2 - 5.6 Hemoglobin 13.4 g/dL 13.0 - 17.0 Hematocrit 40.1 % 39.0 - 50.0 MCV 92.4 fl 82.0 - 98.0 MCH 31.0 pg 27.5 - 33.5 MCHC 33.6 g/dL 32.0 - 36.0 RDW 13.1 % 11.5 - 14.5 Platelet Count 253 1,000 130.0 - 400.0 MPV 8.5 fl 6.5 - 10.5 Segmented Neutrophils 48.9 % 44.0 - 74.0 Band 0.0 % 0.0 - 4.0 Lymphocytes 38.8 % 15.0 - 45.0 Monocytes 8.9 % 2.0 - 13.0 Eosinophils 2.6 % 0.0 - 6.0 Basophils 0.8 % 0.0 - 2.0 Neutrophil Absolute 2.3 1,000 1.4 - 7.0 Lymphocytes Absolute 1.9 1,000 1.0 - 3.4 Monocyte Absolute 0.4 1,000 0.2 - 1.0 Eosinophil Absolute 0.1 1,000 0.0 - 0.5 Basophil Absolute 0.0 1,000 0.0 - 0.2 44 Laboratory test 08/27/2000 [facility] TSH (Thyrotropin) 2.48 0.49 - finding [phone] uIU/ml 4.67 1 Because ethnic data is not always readily available, this report includes an eGFR for both -Americans and non- Americans. The National Kidney Disease Education Program (NKDEP) does not endorse the use of the MDRD equation for patients that are not between the ages of 18 and 70, are , have extremes of body size, muscle mass, or nutritional status, or are non- or non-. According to the National Kidney Foundation, irrespective of diagnosis, the stage of the disease is based on the level of kidney function: Stage Description GFR(mL/min/1.73 m(2)) 1 Kidney damage with normal or decreased GFR 90 2 Kidney damage with mild decrease in GFR 60-89 3 Moderate decrease in GFR 30-59 4 Severe decrease in GFR 15-29 5 Kidney failure <15 (or dialysis) 2 [id number] 3 Normal Range 180 to 914 Indeterminate Range 145 to 180 Deficient Range <145 4 Desirable <150 Borderline high 150-199 High 200-499 Very High >500 5 Desirable <200 Borderline high 200-239 High >239 6 Low <40 Desirable: 40-60 High: >60 7 Desirable: <100 mg/dL Near Optimal: 100-129 mg/dL Borderline High: 130-159 mg/dL High: 160-189 mg/dL Very High: >189 mg/dL 8 Because ethnic data is not always readily available, this report includes an eGFR for both -Americans and non- Americans. The National Kidney Disease Education Program (NKDEP) does not endorse the use of the MDRD equation for patients that are not between the ages of 18 and 70, are , have extremes of body size, muscle mass, or nutritional status, or are non- or non-. According to the National Kidney Foundation, irrespective of diagnosis, the stage of the disease is based on the level of kidney function: Stage Description GFR(mL/min/1.73 m(2)) 1 Kidney damage with normal or decreased GFR 90 2 Kidney damage with mild decrease in GFR 60-89 3 Moderate decrease in GFR 30-59 4 Severe decrease in GFR 15-29 5 Kidney failure <15 (or dialysis) 9 RUN DATE: 12/31/12 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 Tubular adenoma. B. No high grade dysplasia or malignancy. CLINICAL HISTORY Screening colonoscopy with hematochezia POST-OPERATIVE DIAGNOSIS Screening colonoscopy to cecum - mass/polyp biopsied/tattooed, tics GROSS DESCRIPTION The specimen is received in formalin labeled Osvaldo Chawla, Ileocecal Valve, and consists of multiple nickerson, soft tissue fragments measuring 0.9 x 0.4 x 0.2 cm. in aggregate. Submitted entirely, one cassette. Signed (signature on file) Rudy Barroso MD 1532 END OF REPORT * ML=Testing performed at Main Lab DEPARTMENT OF PATHOLOGY, [facility] [place], [place] [address] Rudy Barroso M.D. Director [facility] Permit #[id number] RUN DATE: 11/01/12 [facility] LAB LIVE PAGE 1 RUN TIME: [address] [place] [address] Specimen Inquiry Name: OSVALDO CHAWLA : [address]: Stefany Duncan NP Acct: [id number] Unit: [id number] AGE: 82 Location: [facility] Re10/30/12 SEX: M Status: REG REF SPEC: [id number] RAMESH: 10/30/12-[address]: Stefany Duncan NP REQ: [id number] RECD: 10/30/12 STATUS: COMP _ SOURCE: URINE SPDESC: ORDERED: Urine Culture QUERIES: Medent Number [id number] Procedure Result Verified Site Urine Culture Final 04/27/13- 0813 ML Organism 1 PROTEUS MIRABILIS/PENNERI Fountain Count >100,000 (Many) CFU/ML 1. PROTEUS MIRABILIS/PENNERI M.I.C. RX --------- ------ Ampicillin <=2 S Cefazolin 8 S Cefepime <=1 S Ceftriaxone <=1 S Ciprofloxacin <=0.25 S Gentamicin <=1 S Levofloxacin <=0.12 S Meropenem <=0.25 S Nitrofurantoin 128 R Tetracycline >=16 R Pipercillin/Tazobactam <=4 S Trimethoprim/Sulfamethoxazole <=20 S Amoxicillin/Clavulanic Acid <=2 S Aztreonam <=1 S Contact the Microbiology Department for any additional antibiotic reporting. END OF REPORT * ML=Testing performed at Main Lab DEPARTMENT OF PATHOLOGY, [address] [place] [address] Rudy Barroso M.D. Director [facility] Permit #[id number] 11 Serum levels of PSA measured using the Kirti Yessy DXI Hybritech immunoassay should not be interpreted as absolute evidence of the presence or absence of disease. The PSA value should be used in conjunction with other pertinent clinical diagnostic procedures. A PSA value in the range of 0.1 to 0.6 ng/ml is indeterminate if being used as an indicator of recurrent or residual disease. The values obtained with different assay methods or kits cannot be used interchangeably. 12 Because ethnic data is not always readily available, this report includes an eGFR for both -Americans and non- Americans. The National Kidney Disease Education Program (NKDEP) does not endorse the use of the MDRD equation for patients that are not between the ages of 18 and 70, are , have extremes of body size, muscle mass, or nutritional status, or are non- or non-. According to the National Kidney Foundation, irrespective of diagnosis, the stage of the disease is based on the level of kidney function: Stage Description GFR(mL/min/1.73 m(2)) 1 Kidney damage with normal or decreased GFR 90 2 Kidney damage with mild decrease in GFR 60-89 3 Moderate decrease in GFR 30-59 4 Severe decrease in GFR 15-29 5 Kidney failure <15 (or dialysis) 13 CHOLESTEROL INTERPRETATION: Desirable: Less than 200 MG/DL Borderline-High Risk: 200-239 MG/DL High-Risk: 240 MG/DL and over 14 HDL INTERPRETATION: Undesirable: High Risk: Less than 40 MG/DL Desirable: Low Risk: Greater than 60 MG/DL 15 LDL INTERPRETATION: Low Risk Optimal Level: LDL Less than 100 MG/DL Near or Above Optimal: LDL 100-129 MG/DL Borderline High Risk: LDL 130-159 MG/DL High Risk: LDL 160-189 MG/DL Very High Risk: LDL Greater than 189 MG/DL 16 Anion gap measurement may be of limited value in the presence of any alkalosis, especially in a combined acid base disorder. . 17 A metabolite of Naproxen, O-desmethylnaproxen, has been shown to interfere with the Jendrassik-Dima method for measuring total bilirubin. Samples from patients who have taken Naproxen have shown spurious elevation in total bilirubin levels. 18 Because ethnic data is not always readily available, this report includes an eGFR for both -Americans and non- Americans. The National Kidney Disease Education Program (NKDEP) does not endorse the use of the MDRD equation for patients that are not between the ages of 18 and 70, are , have extremes of body size, muscle mass, or nutritional status, or are non- or non-. According to the National Kidney Foundation, irrespective of diagnosis, the stage of the disease is based on the level of kidney function: Stage Description GFR(mL/min/1.73 m(2)) 1 Kidney damage with normal or decreased GFR 90 2 Kidney damage with mild decrease in GFR 60-89 3 Moderate decrease in GFR 30-59 4 Severe decrease in GFR 15-29 5 Kidney failure <15 (or dialysis) 19 * SERUM LEVELS OF PSA MEASURED USING THE [email or web address] ACCESS HYBRITECH IMMUNOASSAY SHOULD NOT BE INTERPRETED ABSOLUTE EVIDENCE OF THE PRESENCE OR ABSENCE OF DISEASE. THE PSA VALUE SHOULD BE USED IN CONJUNCTION WITH OTHER PERTINENT CLINICAL DIAGNOSTIC PROCEDURES. A PSA value in the range of 0.1 to 0.6 ng/ml is indeterminate if being used as an indicator of recurrent or residual disease. . The values obtained with different assay methods of kits cannot be used interchangeably. 20 Greater than or equal to 211 is normal. . 21 Greater than or equal to 5.4 is normal. . 22 mL/min/1.73m2 . Normal Function or Mild Renal Disease, if clinically at risk: >or=60 Moderately decreased: 30 - 59 Severely decreased: 15 - 29 Renal Failure: <15 . Please note that the MDRD equation requires an additional adjustment for -Americans (multiply the GFR result by 1.210). . Glomerular Filtration Rate (GFR) is estimated based on the MDRD equation, which assumes a steady state for creatinine (Clementine Int Med 139/2 137-149, 2003), as recommended by the National Kidney Disease Education Program in conjunction with the National Institutes of Health and the National Kidney Foundation. . Clinical conditions in which it may be necessary to measure GFR by using clearance methods include extremes of age and body size, severe malnutrition or obesity, diseases of skeletal muscle, paraplegia or quadriplegia, vegetarian diet, rapidly changing kidney function, and calculation of the dose of potentially toxic drugs that are excreted by the kidneys. 23 Cholesterol Risk Levels (NIH) Recommended: under 200 mg/dl Borderline : 200-239 mg/dl High Risk : Above 240 mg/dl 24 The National Cholesterol Education Program recommends the following ranges for LDL Cholesterol: Optimal under 100 mg/dl Near or above Optimal 100 - 129 mg/dl Borderline High 130 - 159 mg/dl High 160 - 189 mg/dl Very High above 190 mg/dl 25 Triglyceride Risk Levels: Normal : <150 mg/dl Borderline : 150-199 mg/dl High : 200-499 mg/dl Very High : >500 mg/dl 26 LDL/HDL Risk Ratio Levels MALE FEMALE 1/2 X Average 1.00 1.47 Average 3.55 3.22 2 X Average 6.25 5.03 3 X Average 7.99 6.14 27 CHOL/HDL Risk Ratio Levels MALE FEMALE 1/2 X Average 3.4 3.3 Average 5.0 4.4 2 X Average 9.5 7.0 3 X Average 24.0 11.0 28 . Serum PSA results should be used only in conjunction with information available from the clinical evaluation of the patient and other diagnostic procedures. Values obtained with different assay methods or kits cannot be used interchangeably. Results obtained using Advia Zurnaur ICMA methodology. 29 ---- RUN DATE: 02/04/07 [facility] LIVE PAGE 1 RUN TIME: 1329 Specimen Inquiry RUN USER: INTERFACE [id number] OSVALDO CHAWLA 77/M <REG REF 02/03> ([id number]) Kashif Mendoza MD -- Specimen: [id number] SOUT Spec Date: 02/03/[address]: Kashif cummings MD Spec Type: SURGICAL P Received: 02/03/07-8593 Copies to: Evan Perez MD SPECIMEN ASCENDING COLON POLYP HISTORY CLINICAL INFORMATION: Patient with history of villoglandular adenoma for follow-up GROSS DESCRIPTION The specimen is received in formalin labelled Osvaldo Cox, Ascending Colon Polyp, and consists of multiple, 0.3 cm. to 0.8 cm. fragments of nickerson-yellow tissue. Total, one block. DIAGNOSIS Ascending colon polyp, excision - A) Tubulovillous adenoma. B) No high grade dysplasia or malignancy. Signed Electronically by: ANGELICA AMEZCUA MD 02/04/07 1329 -- -- DEPARTMENT OF PATHOLOGY, [address] [place] [address] [facility] Permit #[id number] Angelica Amezcua II, M.D. Director Manuel Da Silvactor -- 30 ---- RUN DATE: 02/18/06 [facility] NMI LIVE PAGE 1 RUN TIME: 1036 Specimen Inquiry RUN USER: INTERFACE [id number] OSVALDO CHAWLA 76/M <REG REF 02/14> ([id number]) Kashif Mendoza MD. -- Specimen: [id number] Spec Date: 02/14/[address]: Betzaida Siddiqui MD. Spec Type: SURGICAL P Received: 02/14/06-1245 Copies to: Rayray Melendez CNP. SPECIMEN NODULAR ILEOCECAL VALVE BIOPSY HISTORY CLINICAL INFORMATION: Complains of rectal bleeding. GROSS DESCRIPTION The specimen is received in formalin labelled "Osvaldo Chawla, Ileocecal Valve Bx" and consists of multiple, 0.1 to 0.3 cm. yellow bits. Total, one block. DIAGNOSIS Colon, rectum, biopsy: A. Villoglandular adenoma. B. No severe dysplasia identified. Signed Electronically signed RUDY BARROSO MD 02/18/06 -- -- DEPARTMENT OF PATHOLOGY, [address] [place] [address] [facility] Permit #[id number] Angelica Amezcua II, M.D. Director Rudy Barroso M.D. [employer] Operations Manager D irector -- 31 Cholesterol Risk Levels (NIH) Recommended: under 200 mg/dl Borderline : 200-239 mg/dl High Risk : Above 240 mg/dl . 32 The National Cholesterol Education Program recommends the following ranges for LDL Cholesterol: Optimal under 100 mg/dl Near or above Optimal 100 - 129 mg/dl Borderline High 130 - 159 mg/dl High 160 - 189 mg/dl Very High above 190 mg/dl . 33 Triglyceride Risk Levels: Normal : <150 mg/dl Borderline : 150-199 mg/dl High : 200-499 mg/dl Very High : >500 mg/dl . 34 LDL/HDL Risk Ratio Levels MALE FEMALE 1/2 X Average 1.00 1.47 Average 3.55 3.22 2 X Average 6.25 5.03 3 X Average 7.99 6.14 . 35 CHOL/HDL Risk Ratio Levels MALE FEMALE 1/2 X Average 3.4 3.3 Average 5.0 4.4 2 X Average 9.5 7.0 3 X Average 24.0 11.0 . 36 . Serum PSA results should be used only in conjunction with information available from the clinical evaluation of the patient and other diagnostic procedures. Values obtained with different assay methods or kits cannot be used interchangeably. Results obtained using AdvLEPOWaur ICMA methodology. . 37 mL/min/1.73m2 . Normal Function or Mild Renal Disease, if clinically at risk: >or=60 Moderately decreased: 30 - 59 Severely decreased: 15 - 29 Renal Failure: <15 . Please note that the MDRD equation requires an additional adjustment for -Americans (multiply the GFR result by 1.210). . Glomerular Filtration Rate (GFR) is estimated based on the MDRD equation, which assumes a steady state for creatinine (Clementine Int Med 139/2 137-149, 2003), as recommended by the National Kidney Disease Education Program in conjunction with the National Institutes of Health and the National Kidney Foundation. . Clinical conditions in which it may be necessary to measure GFR by using clearance methods include extremes of age and body size, severe malnutrition or obesity, diseases of skeletal muscle, paraplegia or quadriplegia, vegetarian diet, rapidly changing kidney function, and calculation of the dose of potentially toxic drugs that are excreted by the kidneys. . 38 Effective November Please Note CHANGE IN REFERENCE RANGE. . 39 . RESULTS OBTAINED USING FENG MEIA METHODOLOGY. SERUM PSA RESULTS SHOULD BE USED ONLY IN CONJUNCTION WITH INFORMATION AVAILABLE FROM THE CLINICAL EVALUATION OF THE PATIENT AND OTHER DIAGNOSTIC PROCEDURES. 40 Cholesterol Risk Levels (NIH) Recommended: under 200 mg/dl Borderline : 200-239 mg/dl High Risk : Above 240 mg/dl . 41 LDL Cholesterol Risk Levels (NIH) Recommended: under 130 mg/dl Borderline: 131 - 159 mg/dl High Risk: above 160 mg/dl . 42 LDL/HDL Risk Ratio Levels MALE FEMALE 1/2 X Average 1.00 1.47 Average 3.55 3.22 2 X Average 6.25 5.03 3 X Average 7.99 6.14 . 43 CHOL/HDL Risk Ratio Levels MALE FEMALE 1/2 X Average 3.4 3.3 Average 5.0 4.4 2 X Average 9.5 7.0 3 X Average 24.0 11.0 . 44 NON FASTING Procedures Date Code Description Status 09/14/2011 46401 EKG, at Least 12 Leads w/Interpretation and Report Completed 11/14/1999 82463 EKG, at Least 12 Leads w/Interpretation and Report Completed 06/11/1996 20322 EKG, at Least 12 Leads w/Interpretation and Report Completed 02/09/1994 54443 EKG, at Least 12 Leads w/Interpretation and Report Completed Encounters Type Date Location Provider Dx Diagnosis Office Visit 06/11/2018 [place] Stefany Leroy. 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 V70.0 Examination General Storm, [employer] Medical Routine AT [facility] 578.1 Blood In Stool Melena Office Visit 10/30/2012 2:45p Main Office [place] RMaggie Duncan, 578.1 Blood In Stool [employer] Melena 599.0 UTI Urinary Tract Infection Site Not Spec Office Visit 09/14/2011 1:30p Main Office [place] R. V70.0 Examination General Storm, [employer] Medical Routine AT Health Care Facility 233.4 Carcinoma Prostate 493.90 Asthma Unspec W/O Status Asthmaticus 272.0 Hypercholesterolemia Pure 724.5 Backache Unspec 782.9 Skin & Integumentary Tissue Other Symptoms Office Visit 08/23/2011 1:45p Main Office Stefany R. 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 388.70 Otalgia & Earache Storm, [employer] Unspec Office Visit 01/31/2009 10:15a Main Office [place] R. 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 233.4 Carcinoma Prostate Office Visit 12/10/2007 1:15p Main Office Evan Perez, 465.9 URI Upper M.D. Respiratory Infections Acute Unspec Sites 784.7 Epistaxis Office Visit 08/11/2007 1:45p Main Office Evan Perez, 233.4 Carcinoma M.D. 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 Disorder Other Office Visit 07/16/2005 12:45p Main Office Evan Perez 233.4 Carcinoma Prostate M.D. 493.90 Asthma Unspec W/O Status Asthmaticus 788.31 Incontinence Urge V76.9 Screening Malignant Neoplasm Unspec Office Visit 06/15/2005 11:15a Main Office Evan Perez 233.4 Carcinoma M.D. Prostate 705.81 Dyshidrosis 493.90 Asthma Unspec W/O Status Asthmaticus Office Visit 06/27/2004 4:30p Main Office Darlene Gleason, 372.00 Conjunctivitis Acute M.D. Unspec Office Visit 12/29/2003 12:45p Main Office Evan Perez 233.4 Carcinoma Prostate M.D. 705.81 Dyshidrosis 216.3 Benign Neoplasm Skin Face Other Unspec Part 493.90 Asthma Unspec W/O Status Asthmaticus V76.9 Screening Malignant Neoplasm Unspec Office Visit 04/17/2002 11:15a Main Office Evan Perez 233.4 Carcinoma M.D. 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 493.90 Asthma Unspec W/O Status Asthmaticus 705.81 Dyshidrosis 477.9 Rhinitis Allergic Cause Unspec 601.9 Prostatitis Unspec Plan of Treatment Future Appointment(s):09/03/2018 4:30 pm - [facility] at [facility]07/23/2018 - NANCY Mcgee-CF03.91 Unspecified dementia with behavioral disturbanceNew Medication:Seroquel 50 mg - take one tablet by mouth at bedtimeNew Therapy:Physical Therapy-Evaluate And TreatComments: increase seroquel to 50mg dailyFollow up:4 to 6 weeks, 30 sqqyekwN08.1 WeaknessNew Therapy:Physical Therapy-Evaluate And TjphqX09.89 Other abnormalities of gait and mobilityComments:continue to use walker or cane, will refer to PT
[2018-08-24 23:26] LABS: Acetaminophen < 15 mcg/mL; Alcohol < 10 mg/dL (<10); Salicylate < 2.50 mg/dL (<30)
[2018-08-24 23:41] LABS: TSH (Thyroid Stimulating Horm) 2.52 mcIU/mL (0.34-5.60)
[2018-08-25] MEDS ORDERED: risperiDONE TAB* 1 MG PO ONE (03:13)
[2018-08-25] MEDS ORDERED: Acetaminophen TAB* 325 MG PO PRN (06:07)
[2018-08-25] MEDS ORDERED: Al Hydrox/Mg Hydrox/Simet LIQ* 30 ML UDC PO PRN (06:07)
[2018-08-25] MEDS ORDERED: Divalproex Sprinkle CAP* 125 MG PO SCH (09:00)
[2018-08-25] MEDS ORDERED: amLODIPine TAB* 5 MG PO ONE (10:16)
[2018-08-25 10:39] LABS: Troponin I 0.01 ng/mL (<0.04)
--- NOTE | 2018-08-25 11:19 | HP ---
H&P (Free Text) History and Physical: Justification for admission: Immediate Safety. CC " I want to tell you something The patient was brought to [facility] Emergency room and transferred to the [facility]. He thought his is cheating on him and having an affair. He said I know she is with a lesbian and cheating on me. The patient denied homicidal ideation intent or plan. The patient denied auditory and/ or visual hallucinations. The patient is a poor historian and unable to provide a sound medical and or psychiatric history. His Ivette was called [phone] and said that his memory has been poor for about a year and he forgets family members names and what year it is. She said he doesnt have history of medical issues and only takes Seroquel and cod oil. She said that he hears people talking in the corner and thinks people are coming inside his home to do laundry. PAST PSYCHIATRIC HISTORY: Prior Diagnosis : None History of past Psychiatric Hospitalizations: No prior psychiatric admission. History of past suicide/homicide attempts : Denied past suicide attempts. He denied past homicidal incidents. Outpatient follow-up: Rx by PCP Medications: Past trials of medications include Seroquel 50mg qhs. Provided by PCP. Guardianship: None FAMILY HISTORY: - Suicide: Denied - Mental illness: Mother schizophrenia Substance abuse: Denied SUBSTANCE ABUSE HISTORY: He denied using alcohol tobacco, heroin and cocaine, illicit substances. He denied abusing pills not prescribed . He denied past Substance abuse treatment. - SOCIAL HISTORY: - Childhood: Grew up in [place]. 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 Patient has poor hygiene and grooming. BEHAVIOR: Irritable EYE CONTACT: Fair PSYCHOMOTOR ACTIVITY: psychomotor agitation MOVEMENTS: No abnormal movements observed. SPEECH : Loud and demanding MOOD : I am fine " AFFECT : blunted THOUGHT PROCESS: formulated and organized in a illogical, and tangential manner. THOUGHT CONTENT: Paranoid delusions, preoccupation about world affairs. PERCEPTION: No current auditory or visual hallucinations. Doesnt appear to be responding to internal cues. SUICIDALITY Denied suicidal ideation intent or plan. HOMICIDALITY Denied homicidal ideation, intent or plan. ORIENTATION: Oriented to self not to year, month, season . Unable to name current president . 0/3 word recall. 0/7 serial 7s or WORLD backwards. Diagnosis on Admission: Major Neuro cognitive disorder Assessment: 88 year old with no prior psychiatric history admitted to the [facility] at [facility] for paranoid delusions. Currently medically unstable. Plan #Medical team came to evaluate patient and determined to be appropriately treated on the medical floor. # Patient was admitted on and will be transferred to medical unit to be treated. He is currently medically unstable BP in the 190s. #Patient will be discharged from [facility] and transferred to medical floor Start Seroquel 50mg QAM and 50mg QPM. Start Depakote sprinkles 125mg BID. #Collateral obtained from
[2018-08-25] MEDS: Multivitamins/Minerals TAB PO SCH (11:34)
[2018-08-25] MEDS: COD LIVER OIL PO SCH (11:34)
[2018-08-25] MEDS ORDERED: Divalproex Sprinkle CAP* 125 MG PO ONE (11:55)
[2018-08-25] MEDS ORDERED: QUEtiapine TAB* 25 MG PO SCH ×3 (12:00→21:00)
[2018-08-25] MEDS ORDERED: Divalproex ER TAB(*) 250 MG PO SCH ×2 (12:00)
[2018-08-25] MEDS ORDERED: QUEtiapine TAB* 25 MG PO ONE (12:06)
--- NOTE | 2018-08-25 14:05 | PN ---
Subjective Date of Service: 08/25/18 Interval History: HD #1 88 yo M with PMH dementia ? sub acute delusional who had been on Seroquel at home, has esclated for 2 weeks at home, who presented to the ER with delusional thoughts and was admitted to the BSU, he is noted to be HTN on arrival and medicine is consulted, he has no documented hx of HTN and is not on anti HTN. Denies CP, SOB, DIAL, neurologic sx, GI or complaints. His reports no documented hx of HTN. ROS: As above PMH: Hx of prostate cancer, hx of ilescecotomy laproscopic in 2012, denies hx of MH disease Social Hx: Reports occasional ETOH use, denies substance abuse, tox screen normal Given Amlodipine 10mg at 10 oclolc, BP now 175/90 on manual Family History: Unchanged from Admission Objective Active Medications: Acetaminophen (Tylenol Tab*) 650 mg PO Q4H PRN PRN Reason: PAIN; OR TEMP >101 Al Hydrox/Mg Hydrox/Simethicone (Maalox Plus*) 30 ml PO Q4H PRN PRN Reason: INDIGESTION Divalproex Sodium (Depakote Sprinkle Cap*) 125 mg PO 2000 [facility] Divalproex Sodium (Depakote Sprinkle Cap*) 125 mg PO QAM [facility] Multivitamins/Minerals (Theragran/Minerals Tab*) 1 tab PO DAILY [facility] Last Admin: 08/25/18 11:34 Dose: Not Given Nft: Cod Liver Oil (Capsule) 1 dose PO DAILY [facility] Last Admin: 08/25/18 11:34 Dose: Not Given Quetiapine Fumarate (Seroquel Tab*) 50 mg PO 0900 [facility] Quetiapine Fumarate (Seroquel Tab*) 50 mg PO 2000 [facility] Vital Signs - 8 hr 08/25/18 08/25/18 08/25/18 08:33 09:06 09:24 Temperature 98.6 F Pulse Rate 76 76 Respiratory 16 16 Rate Blood Pressure 190/103 177/105 (mmHg) O2 Sat by Pulse 100 100 Oximetry Oxygen Devices in Use Now: None Appearance: Pleasant man in NAD, talking a lot Ears/Nose/Mouth/Throat: NL Teeth, Lips, Gums, Mucous Membranes Moist Neck: NL Appearance and Movements; NL JVP, Trachea Midline Respiratory: Symmetrical Chest Expansion and Respiratory Effort, Clear to Auscultation Cardiovascular: NL Sounds; No Murmurs; No JVD, RRR Abdominal: NL Sounds; No Tenderness; No Distention, No Hepatosplenomegaly Lymphatic: No Cervical Adenopathy Extremities: No Edema Skin: No Rash or Ulcers Neurological: - - Oriented to self, no focal defecits CN2-12 intact Result Diagrams: 08/24/18 22:57 08/24/18 22:57 Assess/Plan/Problems-Billing Assessment: 88 yo M with PMH dementia ? sub acute delusional process x 2 to 3 months who had been on Seroquel at home rx by PCP self d/c 2 weeks ago, has escalated for 2 weeks at home w [place], who presented to the ER with delusional thoughts and was admitted to the BSU, he is noted to be HTN on arrival and medicine is consulted and requested to move to medicine floor for persistent asymptomatic HTN. - Patient Problems (1) Hypertensive urgency Current Visit: Yes Status: Acute Code(s): I16.0 - HYPERTENSIVE URGENCY SNOMED Code(s): 858808181 Comment: -Continue Amlodipine 10mg -Lisinopril 10mg, start today (2) Delusional disorder Current Visit: Yes Status: Acute Code(s): F22 - DELUSIONAL DISORDERS SNOMED Code(s): 54540395 Comment: DDx broad, underlying dementia -TSH, RPR, Folate, B12 -Consult to Neuro -CT Head ordered, pt refusing -Will ask psych to continue to follow from a Geripsych standpoint, they have added Depakote which we will continue (3) DVT prophylaxis Current Visit: Yes Status: Acute Code(s): RTG2535 - SNOMED Code(s): 858967721 Comment: Ambulatory (4) Full code status Current Visit: Yes Status: Acute Code(s): Z78.9 - OTHER SPECIFIED HEALTH STATUS SNOMED Code(s): 705156609 Status and Disposition: Transfer to medicine 4N
[2018-08-25] MEDS ORDERED: Lisinopril TAB* 10 MG PO SCH (15:00)
--- NOTE | 2018-08-25 16:05 | DS ---
Subjective - Subjective Service Types: 17[address] [facility] Day Mgmt complex over 30 min Discharge Date: 08/25/18 Subjective: Justification for admission: Immediate Safety. CC " I want to tell you something The patient was brought to [facility] Emergency room and transferred to the BSU. He thought his is cheating on him and having an affair. He said I know she is with a lesbian and cheating on me. The patient denied homicidal ideation intent or plan. The patient denied auditory and/ or visual hallucinations. The patient is a poor historian and unable to provide a sound medical and or psychiatric history. His Ivette was called [phone] and said that his memory has been poor for about a year and he forgets family members names and what year it is. She said he doesnt have history of medical issues and only takes Seroquel and cod oil. She said that he hears people talking in the corner and thinks people are coming inside his home to do laundry. PAST PSYCHIATRIC HISTORY: Prior Diagnosis : None History of past Psychiatric Hospitalizations: No prior psychiatric admission. History of past suicide/homicide attempts : Denied past suicide attempts. He denied past homicidal incidents. Outpatient follow-up: Rx by PCP Medications: Past trials of medications include Seroquel 50mg qhs. Provided by PCP. Guardianship: None FAMILY HISTORY: - Suicide: Denied - Mental illness: Mother schizophrenia Substance abuse: Denied SUBSTANCE ABUSE HISTORY: He denied using alcohol tobacco, heroin and cocaine, illicit substances. He denied abusing pills not prescribed . He denied past Substance abuse treatment. SOCIAL HISTORY: - Childhood: Grew up in [place] [facility]. 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 - Legal history: Denied - service history: [employer] in [employer] PAST MEDICAL HISTORY: Denied heart disease, Diabetes, cancer and/ or other medical conditions. History of prostate cancer and removal polyp Allergies: Denied Physical Exam: Please see ED note Mental Status Exam on Admission APPEARANCE : 88 year old male who appears stated age. Patient has poor hygiene and grooming. BEHAVIOR: Irritable EYE CONTACT: Fair PSYCHOMOTOR ACTIVITY: psychomotor agitation MOVEMENTS: No abnormal movements observed. SPEECH : Loud and demanding MOOD : I am fine " AFFECT : blunted THOUGHT PROCESS: formulated and organized in a illogical, and tangential manner. THOUGHT CONTENT: Paranoid delusions, preoccupation about world affairs. PERCEPTION: No current auditory or visual hallucinations. Doesnt appear to be responding to internal cues. SUICIDALITY Denied suicidal ideation intent or plan. HOMICIDALITY Denied homicidal ideation, intent or plan. ORIENTATION: Oriented to self not to year, month, season . Unable to name current president . 0/3 word recall. 0/7 serial 7s or WORLD backwards. Diagnosis on Admission: Major Neuro cognitive disorder Assessment: 88 year old with no prior psychiatric history admitted to the BSU at [facility] for paranoid delusions. Currently medically unstable. Plan #Medical team came to evaluate patient and determined that he would be more appropriately be treated on the medical floor. # Patient was admitted on and will be transferred to medical unit to be treated. He is currently medically unstable BP in the 190s. #Patient will be discharged from BSU and transferred to medical floor #Start Seroquel 50mg QAM and 50mg QPM. #Start Depakote sprinkles 125mg BID. #CT Head patient refused #Collateral obtained from #Neurology consulted #Will continue to follow patient once on medical floor. Diagnosis on Admission:Major Neuro cognitive disorder Diagnosis on Discharge:Major Neuro cognitive disorder Condition at the time of discharge: At the time of discharge was medically unstable and transferred to the medical unit for stabilization. Patient doesnt require 1:1 observation at this time. He can be continued on depakote 125mg PO BID and seroquel 50mg BID. Patient will be followed while on the medical floor. Objective - Appearance Appearance: Healthy Appearing Dysmorphic Features: No Hygiene: Mal-odorous Grooming: Disheveled - Behavior Psychomotor Activities: Abnormal-Increased Exhibits Abnormal Movement: No - Attitude and Relatedness Attitude and Relatedness: Irritable Eye Contact: Fair - Speech Quality: Unpressured Latencies: Short Quantity: Copious - Mood Patient's Decription of Mood: "Irritable" - Affect Observed Affect: Constricted Affect Consistent with: Euthymia - Thought Process Patient's Thought Process: Tangential Thought Content: No Passive Wish, No Suicidal Planning, No Homicidal Ideation, No Paranoid Ideation - Sensorium Experiencing Hallucinations: No, Sensorium is Clear Type of Hallucinations: Visual: No, Auditory: No, Command: No - Level of Consciousness Level of Consciousness: Agitated Orientation: Yes Orientated to Person, No Intact, No Orientated to Time, No Orientated to Place - Impulse Control Impulse Control: Poor - Insight and Judgement Insight and Judgement: Poor - Group Participation Particating in Group Activities: No - Medication Management Medication Management Adherence: Yes Treatment Course & Assessment Clinical Course & Impression: Assessment: 88 year old with no prior psychiatric history admitted to the BSU at [facility] for paranoid delusions. Currently medically unstable and will be transferred to appropriate medical care at [facility]. Hospital course part A and assessment : 88 year old with no prior psychiatric history admitted to the BSU at [facility] for paranoid delusions. Currently medically unstable and will be transferred to appropriate medical care Hospital course part B: Labs ordered CBC, CMP, UDS, TSH, HBA1c, lipid profile, UA, UDS, RPR. Vital signs and EKG Troponin The patient was admitted to the adult behavioral unit and placed on 15 minute check for safety. Recommend Depakote to be monitored upon discharge. Patient requires guardian and supportive care environment upon discharge. The patient was seen and evaluated and deemed medically unstable and transferred to the medical floor. Patient requires follow up care upon discharge. Will continue to follow patient on the medical floor. Merits Inpatient Hospitalization: Yes Clear for Discharge: Other - Transfer to medical unit Discharge Planning - Discharge Planning Discharge Plan: Inpatient Hospitalization Recommendations for Continuing Care: Primary Care Followup Medications: Current Medications Acetaminophen (Tylenol Tab*) 650 mg PO Q4H PRN PRN Reason: PAIN; OR TEMP >101 Al Hydrox/Mg Hydrox/Simethicone (Maalox Plus*) 30 ml PO Q4H PRN PRN Reason: INDIGESTION Divalproex Sodium (Depakote Sprinkle Cap*) 125 mg PO 2000 [place] Divalproex Sodium (Depakote Sprinkle Cap*) 125 mg PO QAM [facility] Lisinopril (Prinivil Tab*) 10 mg PO DAILY [facility] Multivitamins/Minerals (Theragran/Minerals Tab*) 1 tab PO DAILY [facility] Last Admin: 08/25/18 11:34 Dose: Not Given Nft: Cod Liver Oil (Capsule) 1 dose PO DAILY [facility] Last Admin: 08/25/18 11:34 Dose: Not Given Quetiapine Fumarate (Seroquel Tab*) 50 mg PO 0900 [facility] Quetiapine Fumarate (Seroquel Tab*) 50 mg PO 1999 [facility] Discharge Planning: Prescriptions provided for discharge [] Yes [] No Follow up care details as per social work arrangements. Patient response to discharge plan: [] eager for discharge [] agreeable with discharge plan [] ambivalent about discharge [] disagrees with discharge today
[2018-08-25] MEDS ORDERED: hydrALAZINE IV* 20 MG/ML VIAL IV SLOW PU PRN (16:08)
[2018-08-25] MEDS: QUEtiapine TAB* 25 MG PO SCH (20:55)
[2018-08-25] MEDS: Divalproex Sprinkle CAP* 125 MG PO SCH (22:01)
[2018-08-26 05:37] LABS: ABS Basophils 0.1 10^3/ul (0-0.2); ABS Eosinophils 0.1 10^3/ul (0-0.6); ABS Lymphocytes 1.7 10^3/ul (1.0-4.8); ABS Monocytes 0.5 10^3/ul (0-0.8); ABS Neutrophils 2.4 10^3/ul (1.5-7.7); ABS Nucleated RBC 0 10^3/ul; Eosinophil % 2.1 %; Hematocrit 33 % (42-52); Hemoglobin 11.2 g/dl (14.0-18.0); Lymphocyte % 36.2 %; Mean Corpuscular HGB Conc 33 g/dl (31-36); Mean Corpuscular Hemoglobin 30 pg (27-31); Mean Corpuscular Volume 91 fL (80-94); Mean Platelet Volume 7.8 fL (7.4-10.4); Nucleated Red Blood Cells % 0; Platelet Count 249 10^3/ul (150-450); Red Blood Count 3.68 10^6/ul (4.00-5.40); Red Cell Distribution Width 14 % (10.5-15); White Blood Count 4.8 10^3/ul (3.5-10.8)
[2018-08-26 05:53] LABS: BUN/Creatinine Ratio 23.6 (8-20); Calcium 8.8 mg/dL (8.6-10.3); EGFR African American 124.4 (>60); EGFR Non-African American 102.8 (>60); HDL Cholesterol 56.4 mg/dL; Potassium 3.9 mmol/L (3.5-5.0)
[2018-08-26] MEDS ORDERED: Nicotine PATCH 7 MG/24 HR* PATCH TRANSDERM SCH (08:00)
[2018-08-26] MEDS: QUEtiapine TAB* 25 MG PO SCH ×2 (08:49→19:52)
[2018-08-26] MEDS: Lisinopril TAB* 10 MG PO SCH (08:49)
[2018-08-26] MEDS: Multivitamins/Minerals TAB PO SCH (08:49)
--- NOTE | 2018-08-26 08:49 | PN ---
Subjective Date of Service: 08/26/18 Interval History: HD #2 on 08/26 88 yo M with PMH dementia ? sub acute delusional who had been on Seroquel at home, has esclated for 2 weeks at home, who presented to the ER with delusional thoughts and was admitted to the BSU, he is noted to be HTN on arrival and medicine is consulted, he has no documented hx of HTN and is not on anti HTN. Denies CP, SOB, DIAL, neurologic sx, GI or complaints. His reports no documented hx of HTN. Rec'd Lisinopril 5 and Amlodipine 10 yesterday and BP normotensive overnight, asymptomatic, other vitals normal. Labs normal today This morning seen and he has no complaints, no chest pain or shortness of breath , generally well and talkative PMH: Hx of prostate cancer, hx of ilescecotomy laproscopic in 2012, denies hx of MH disease Social Hx: Reports occasional ETOH use, denies substance abuse, tox screen negative Family History: Unchanged from Admission Objective Active Medications: Acetaminophen (Tylenol Tab*) 650 mg PO Q4H PRN PRN Reason: PAIN; OR TEMP >101 Al Hydrox/Mg Hydrox/Simethicone (Maalox Plus*) 30 ml PO Q4H PRN PRN Reason: INDIGESTION Amlodipine Besylate (Norvasc Tab*) 2.5 mg PO DAILY [facility] Divalproex Sodium (Depakote Sprinkle Cap*) 125 mg PO 1999 [facility] Last Admin: 08/25/18 22:01 Dose: 125 mg Divalproex Sodium (Depakote Sprinkle Cap*) 125 mg PO QAM [facility] Hydralazine HCl (Apresoline Iv*) 5 mg IV SLOW PU Q6H PRN PRN Reason: SYSTOLIC BP GREATER THAN:180 Lisinopril (Prinivil Tab*) 5 mg PO DAILY [facility] Multivitamins/Minerals (Theragran/Minerals Tab*) 1 tab PO DAILY [facility] Last Admin: 08/25/18 11:34 Dose: Not Given Nft: Cod Liver Oil (Capsule) 1 dose PO DAILY [facility] Last Admin: 08/25/18 11:34 Dose: Not Given Quetiapine Fumarate (Seroquel Tab*) 50 mg PO 0900 [facility] Quetiapine Fumarate (Seroquel Tab*) 50 mg PO 1999 [facility] Last Admin: 08/25/18 20:55 Dose: 50 mg Vital Signs - 8 hr 08/26/18 08/26/18 08/26/18 03:31 07:46 07:50 Temperature 97.4 F 97.7 F Pulse Rate 51 46 57 Respiratory 16 16 Rate Blood Pressure 114/65 104/57 125/67 (mmHg) O2 Sat by Pulse 100 100 Oximetry Oxygen Devices in Use Now: None Appearance: Pleasant man appears younger than stated age Eyes: No Scleral Icterus Ears/Nose/Mouth/Throat: Mucous Membranes Moist Neck: NL Appearance and Movements; NL JVP Respiratory: Symmetrical Chest Expansion and Respiratory Effort, Clear to Auscultation Cardiovascular: NL Sounds; No Murmurs; No JVD, RRR Abdominal: NL Sounds; No Tenderness; No Distention Lymphatic: No Cervical Adenopathy Extremities: No Edema Skin: No Rash or Ulcers Result Diagrams: 08/26/18 05:30 08/26/18 05:31 Assess/Plan/Problems-Billing Assessment: 88 yo M with PMH dementia ? sub acute delusional process x 2 to 3 months who had been on Seroquel at home rx by PCP self d/c 2 weeks ago, has escalated for 2 weeks at home w paranoia, who presented to the ER with delusional thoughts and was admitted to the BSU, he is noted to be HTN on arrival and medicine is consulted and requested to move to medicine floor for persistent asymptomatic HTN on 08/25. Normotensive since 08/25 - Patient Problems (1) Hypertensive urgency Current Visit: Yes Status: Acute Code(s): I16.0 - HYPERTENSIVE URGENCY SNOMED Code(s): 231738662 Comment: -Lower amlodipne to 2.5mg -Lisinopril 5mg continue (2) Delusional disorder Current Visit: Yes Status: Acute Code(s): F22 - DELUSIONAL DISORDERS SNOMED Code(s): 03177747 Comment: DDx broad, underlying dementia -TSH, RPR, Folate, B12-TSh and B12 normal, RPR pending -Consult to Neuro, though unclear if they will be able to contribute without imaging -CT Head ordered, pt refusing -Will ask psych to continue to follow from a Geripsych standpoint, they have added Depakote which we will continue (3) Anemia Current Visit: Yes Status: Acute Code(s): D64.9 - ANEMIA, UNSPECIFIED SNOMED Code(s): 501212043 Comment: Mild, continue to monitor (4) DVT prophylaxis Current Visit: Yes Status: Acute Code(s): HUO8629 - SNOMED Code(s): 679145434 Comment: Ambulatory (5) Full code status Current Visit: Yes Status: Acute Code(s): Z78.9 - OTHER SPECIFIED HEALTH STATUS SNOMED Code(s): 730908030 Status and Disposition: Inpatient, if clinically stable could transfer back to home and continue outpatient workup
[2018-08-26] MEDS: COD LIVER OIL PO SCH (08:51)
[2018-08-26] MEDS: Divalproex Sprinkle CAP* 125 MG PO SCH ×2 (08:51→19:51)
--- NOTE | 2018-08-26 08:55 | CONSULT ---
Identification - Patient Identification -: Patient is a 88 year old, M admitted on 08/25/18. Exam Appearance: Healthy Appearing Hygiene: Mal-odorous Grooming: Disheveled Psychomotor Activities: Abnormal-Increased Exhibits Abnormal Movement: No Attitude and Relatedness: Irritable Eye Contact: Fair - Speech Quality: Unpressured Latencies: Short Quantity: Copious Patient's Decription of Mood: "Irritable" Observed Affect: Constricted Affect Consistent with: Euthymia Patient's Thought Process: Tangential Thought Content: No Passive Wish, No Suicidal Planning, No Homicidal Ideation, No Paranoid Ideation Experiencing Hallucinations: No, Sensorium is Clear Type of Hallucinations: Visual: No, Auditory: No, Command: No Level of Consciousness: Agitated Orientation: Yes Orientated to Person, No Intact, No Orientated to Time, No Orientated to Place Impulse Control: Poor Insight and Judgement: Poor Impression - Impression Clinical Impression: Assessment: 88 year old with no prior psychiatric history admitted to the BSU at [facility] for paranoid delusions. Currently medically unstable and will be transferred to appropriate medical care at [facility]. Hospital course part A and assessment : 88 year old with no prior psychiatric history admitted to the BSU at [facility] for paranoid delusions. Currently medically unstable and will be transferred to appropriate medical care Hospital course part B: Labs ordered CBC, CMP, UDS, TSH, HBA1c, lipid profile, UA, UDS, RPR. Vital signs and EKG Troponin The patient was admitted to the adult behavioral unit and placed on 15 minute check for safety. Recommend Depakote to be monitored upon discharge. Patient requires guardian and supportive care environment upon discharge. The patient was seen and evaluated and deemed medically unstable and transferred to the medical floor. Patient requires follow up care upon discharge. Will continue to follow patient on the medical floor. Merits Inpatient Hospitalization: Yes Plan - Treatment Plan Medications: Current Medications Acetaminophen (Tylenol Tab*) 650 mg PO Q4H PRN PRN Reason: PAIN; OR TEMP >101 Al Hydrox/Mg Hydrox/Simethicone (Maalox Plus*) 30 ml PO Q4H PRN PRN Reason: INDIGESTION Amlodipine Besylate (Norvasc Tab*) 2.5 mg PO DAILY [facility] Divalproex Sodium (Depakote Sprinkle Cap*) 125 mg PO 1999 [facility] Last Admin: 08/25/18 22:01 Dose: 125 mg Divalproex Sodium (Depakote Sprinkle Cap*) 125 mg PO QAM [facility] Last Admin: 08/26/18 08:51 Dose: 125 mg Hydralazine HCl (Apresoline Iv*) 5 mg IV SLOW PU Q6H PRN PRN Reason: SYSTOLIC BP GREATER THAN:180 Lisinopril (Prinivil Tab*) 5 mg PO DAILY [facility] Last Admin: 08/26/18 08:49 Dose: 5 mg Multivitamins/Minerals (Theragran/Minerals Tab*) 1 tab PO DAILY [facility] Last Admin: 08/26/18 08:49 Dose: 1 tab Nft: Cod Liver Oil (Capsule) 1 dose PO DAILY [facility] Last Admin: 08/26/18 08:51 Dose: Not Given Quetiapine Fumarate (Seroquel Tab*) 50 mg PO 0900 [facility] Last Admin: 08/26/18 08:49 Dose: 50 mg Quetiapine Fumarate (Seroquel Tab*) 50 mg PO 2000 [facility] Last Admin: 08/25/18 20:55 Dose: 50 mg
[2018-08-26] MEDS ORDERED: amLODIPine TAB* 5 MG PO SCH ×2 (09:00)
--- NOTE | 2018-08-26 10:27 | CONSULT ---
Consult Consult: CC " Jeanne is going to take over The patient was recently transferred to the 4th floor from the BSU for medical stabilization. He was seen and evaluated today and was eating breakfast before encounter. He stated that Jeanne is going to take over everything and spoke about how one man is in charge of all the shipping containers. The patient denied suicidal ideation, intent or plan. The patient denied homicidal ideation intent or plan. The patient denied auditory and/ or visual hallucinations. The patient is a poor historian and difficult to redirect conversation. Per his Ivette [phone] he has a 1 year history of memory issues. History per H&P on 08/25/18 PAST PSYCHIATRIC HISTORY: Prior Diagnosis : None History of past Psychiatric Hospitalizations: No prior psychiatric admission. History of past suicide/homicide attempts : Denied past suicide attempts. He denied past homicidal incidents. Outpatient follow-up: Rx by PCP Medications: Past trials of medications include Seroquel 50mg qhs. Provided by PCP. Guardianship: None FAMILY HISTORY: - Suicide: Denied - Mental illness: Mother schizophrenia Substance abuse: Denied SUBSTANCE ABUSE HISTORY: He denied using alcohol tobacco, heroin and cocaine, illicit substances. He denied abusing pills not prescribed . He denied past Substance abuse treatment. SOCIAL HISTORY: - Childhood: Grew up in [facility]. 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 Patient has poor hygiene and grooming. BEHAVIOR: some what cooperative EYE CONTACT: Fair PSYCHOMOTOR ACTIVITY: psychomotor agitation MOVEMENTS: No abnormal movements observed. SPEECH : normal rate MOOD : okay " AFFECT : blunted THOUGHT PROCESS: formulated and organized in a illogical, and tangential manner. THOUGHT CONTENT: preoccupation about world affairs. PERCEPTION: No current auditory or visual hallucinations. Doesnt appear to be responding to internal cues. SUICIDALITY Denied suicidal ideation intent or plan. HOMICIDALITY Denied homicidal ideation, intent or plan. ORIENTATION: Oriented to self not to year, month, season . Unable to name current president . 0/3 word recall. 0/7 serial 7s or WORLD backwards. Clock Drawing 2/3 points. 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 Assessment: 88 year old with no prior psychiatric history admitted to the BSU at [facility] for paranoid delusions and was transferred to the medical floor for medical stabilization. Patient seemed to have an improved frustration tolerance and was less irritable after initiation of treatment. Patient has no history of suicide attempts, no access to guns, and has support system and is . Plan # Patient doesnt require Psychiatric inpatient hospitalization at this time. Patient currently not having suicidal ideation intent or plans and or Homicidal ideation intent or plans. No substance abuse or access to firearms. No history of suicide attempt. # Continue Seroquel 50mg QAM and 50mg QPM. # Continue Depakote sprinkles 125mg BID. # MOCA attempted but patient was unable to participate. # Patient lacks decision making capacity due to Neuro-cognitive disorder. # Patient doesnt require 1:1 supervision at this time. # Patients family considering health care proxy/ Guardianship Recommendations communicated with primary team # Will sign off for now, Please consult Psychiatry for any further questions. Wilberto Moreno M.D. Ext [phone] Pager [phone].
--- NOTE | 2018-08-26 15:30 | PN ---
Hospitalist Progress Note Date of Service: 08/26/18 Met with his Ivette, psychiatrist Dr. Melo, and our bilingual case manager for a family meeting We discussed our concerns about Mr. Wood safety in the home. His does appear overwhelemed with his care and describes a period of decline of more than a year. We discussed his definitive diagnosis of dementia, though he has not had much of a work up. Overall, Ivette would like him to return to home, she says when he takes his meds he is more cooperative. They have looked into adult day care, we also suggested she pursue or look into the process of conservation, we gave her resources for office of aging. We will keep him in house to complete his dementia workup and d/c to home with as much commuinity support as we can offer
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
--- NOTE | 2018-08-27 08:13 | PN ---
Subjective Date of Service: 08/27/18 Interval History: HD #3 on 08/27 88 yo M with PMH dementia ? sub acute delusional who had been on Seroquel at home, has esclated for 2 weeks at home, who presented to the ER with delusional thoughts and was admitted to the [facility], he is noted to be HTN on arrival and medicine was asked to take over care Overnight no acute events, continues to be delusional, paranoid. His Syphillis ab came back +, RPR is pending, we discussed initially LP and would need chemical restraint as pt is refusing IV or even to meet with anesthesia. Spoke with ID this morning and tx for tertiary syphilis includes PICC line with long term care phlebotomist PCN, furthermore, would not "undo" any damage already done. Again spoke with his and family, they do not feel he could comply with treatment and they would not be comfortable forcing him into long-term care with sedation in order to receive treatment. has been tested 2x for STI and negative both times. VSS. This morning seen he is resting comfortably Objective Active Medications: Acetaminophen (Tylenol Tab*) 650 mg PO Q4H PRN PRN Reason: PAIN; OR TEMP >101 Al Hydrox/Mg Hydrox/Simethicone (Maalox Plus*) 30 ml PO Q4H PRN PRN Reason: INDIGESTION Amlodipine Besylate (Norvasc Tab*) 2.5 mg PO DAILY [facility] Divalproex Sodium (Depakote Sprinkle Cap*) 125 mg PO 2000 [facility] Last Admin: 08/26/18 19:51 Dose: 125 mg Divalproex Sodium (Depakote Sprinkle Cap*) 125 mg PO QAM [facility] Last Admin: 08/26/18 08:51 Dose: 125 mg Hydralazine HCl (Apresoline Iv*) 5 mg IV SLOW PU Q6H PRN PRN Reason: SYSTOLIC BP GREATER THAN:180 Lisinopril (Prinivil Tab*) 5 mg PO DAILY [facility] Last Admin: 08/26/18 08:49 Dose: 5 mg Multivitamins/Minerals (Theragran/Minerals Tab*) 1 tab PO DAILY [facility] Last Admin: 08/26/18 08:49 Dose: 1 tab Nft: Cod Liver Oil (Capsule) 1 dose PO DAILY [facility] Last Admin: 08/26/18 08:51 Dose: Not Given Quetiapine Fumarate (Seroquel Tab*) 50 mg PO 0900 [facility] Last Admin: 08/26/18 08:49 Dose: 50 mg Quetiapine Fumarate (Seroquel Tab*) 50 mg PO 2000 [facility] Last Admin: 08/26/18 19:52 Dose: 50 mg Vital Signs - 8 hr 08/27/18 08/27/18 03:24 07:36 Temperature 97.9 F 97.8 F Pulse Rate 63 70 Respiratory 16 16 Rate Blood Pressure 101/58 119/75 (mmHg) O2 Sat by Pulse 100 100 Oximetry Oxygen Devices in Use Now: None Appearance: Man resting comfortably in chair Eyes: No Scleral Icterus Neck: NL Appearance and Movements; NL JVP Respiratory: Symmetrical Chest Expansion and Respiratory Effort Cardiovascular: No Edema Extremities: No Edema Skin: No Rash or Ulcers Neurological: - - Oriented to self Result Diagrams: 08/26/18 05:30 08/26/18 05:31 Assess/Plan/Problems-Billing Assessment: 88 yo M with PMH dementia ? sub acute delusional process x 2 to 3 months who had been on Seroquel at home rx by PCP self d/c 2 weeks ago, has escalated for 2 weeks at home w paranoia, who presented to the ER with delusional thoughts and was admitted to the [facility], he is noted to be HTN on arrival and medicine is consulted and requested to move to medicine floor for persistent asymptomatic HTN on 08/25 that has since resolved - Patient Problems (1) Hypertensive urgency Current Visit: Yes Status: Acute Code(s): I16.0 - HYPERTENSIVE URGENCY SNOMED Code(s): 139204676 Comment: -DC amlodipine altogether, less pill burden going home is ideal -Lisinopril 5mg continue (2) Delusional disorder Current Visit: Yes Status: Acute Code(s): F22 - DELUSIONAL DISORDERS SNOMED Code(s): 09742785 Comment: DDx broad, underlying dementia -TSH, RPR, Folate, B12-TSH and B12 normal, IgG syphilis Ab +, RPR pending, -Consult to Neuro, concern for neurosyphilis, though after discussion about pros/cons and treatment family does not want to pursue LP as they don't believe he could comply with treatment and don't feel comfortable forcing him to do so, CTH negative -To go home on Depakote, Seroqeul, Lisinopril - and family conisdering adult day care -VNA services (3) Anemia Current Visit: Yes Status: Acute Code(s): D64.9 - ANEMIA, UNSPECIFIED SNOMED Code(s): 224285840 Comment: Mild, continue to monitor (4) DVT prophylaxis Current Visit: Yes Status: Acute Code(s): HBZ8316 - SNOMED Code(s): 684846839 Comment: Ambulatory (5) Full code status Current Visit: Yes Status: Acute Code(s): Z78.9 - OTHER SPECIFIED HEALTH STATUS SNOMED Code(s): 206843408 Status and Disposition: DC to home today
[2018-08-27] MEDS: Lisinopril TAB* 10 MG PO SCH (08:55)
[2018-08-27] MEDS: QUEtiapine TAB* 25 MG PO SCH ×2 (08:56→18:31)
[2018-08-27] MEDS: Divalproex Sprinkle CAP* 125 MG PO SCH ×2 (08:57→18:32)
[2018-08-27] MEDS: Multivitamins/Minerals TAB PO SCH (08:58)
[2018-08-27] MEDS: COD LIVER OIL PO SCH (08:58)
[2018-08-27] MEDS ORDERED: amLODIPine TAB* 5 MG PO SCH (09:00)
[2018-08-27 13:00] LABS: RPR Nonreactive (Nonreactive)
[2018-08-27 17:14] VITALS: BP 109/70
--- NOTE | 2018-08-27 18:30 | DS ---
CC: Stefany Duncan NP * DISCHARGE SUMMARY: DATE OF ADMISSION: 08/25/18 DATE OF DISCHARGE: 08/27/18 PRIMARY CARE PROVIDER: Stefany Duncan NP PRIMARY DIAGNOSIS: Neurocognitive disorder with persistent delusions. SECONDARY DIAGNOSES: 1. Hypertension. 2. Dementia. 3. Anemia. MEDICATIONS ON DISCHARGE: As follows: 1. Depakote Sprinkle caps 125 mg p.o. b.i.d. 2. Lisinopril 5 mg p.o. daily. 3. Quetiapine 50 mg p.o. b.i.d. 4. Cod liver oil 1 cap p.o. daily. Medication changes on this hospitalization are the addition of lisinopril 5 mg p.o. daily, the addition of Depakote 125 mg p.o. b.i.d., and the increasing of Seroquel from 50 mg q.h.s. to 50 mg p.o. b.i.d. HISTORY OF PRESENT ILLNESS AND HOSPITAL COURSE: An 88-year-old male with above past medical history, who presented to the hospital on 08/25/18 after his called the police when he continued to have persistent delusional thoughts such as his neighbors coming in and doing laundry in the home as well as thinking that his was cheating on him and having an affair. His provided the majority of the HPI as he is a poor historian and was unable to provide his medical or psychiatric history. His , Ivette, said that memory has been poor for about a year and a half and he forgets family members' names and what the year is. He does not have a history of any medical issues. He was prescribed Seroquel by his primary care provider for presumed diagnosis of either Alzheimer dementia, vascular dementia with behavioral disturbance or frontotemporal dementia and apparently had stopped taking Seroquel 2 weeks prior to coming to the hospital and had persistent paranoia that was increasing over the last 2 weeks. EMERGENCY ROOM COURSE: In the emergency room, Psychiatry was consulted. The patient was hypertensive to the 190s/90s. His heart rate was normal. He was satting well on room air. His respirations were unlabored. Initially, he was accepted to the psychiatric service to manage his paranoid delusions. Labs were done, which showed hemoglobin of 11.2, hematocrit 33. BMP was done, which was totally unremarkable. UA was done, which was largely normal. Tox screen was done, which was largely normal. B12 was collected, which was normal at 253. TSH was done, which was normal at 2.52. He was admitted to the psychiatric service initially; however, he continued to be persistently hypertensive thought to be secondary to agitation and they felt that it was more appropriate to transfer him to the medical service and thus he was transferred on hospital day #1. While on the medical service, his hospital course by problem is as follows: 1. Neurocognitive disorder with persistent delusions. This patient has had memory loss over a year and a half and has a clinical diagnosis of dementia. His dementia workup to date has been limited secondary to his participation in engaging with medical care. TSH was done, which was normal. B12 was done, which was normal. A syphilis IgG antibody was drawn, which was shown to be reactive, although RPR was nonreactive. Neurology was consulted in this case to see the patient and they recommended head imaging, which he ultimately declined to have done. He did have a CT head done, which showed no intracranial abnormality acutely. Ultimately, Neurology felt that it was appropriate given his reactive IgG antibody to syphilis to pursue a lumbar puncture. A family meeting was held at this point to discuss the pros and cons of pursuing this procedure and whether it would likely liner roll changer. The patient would need to be placed under general anesthesia to pursue a lumbar puncture and in discussion with Infectious Disease-- If he was found to have tertiary neurosyphilis, he would need to be treated with IV penicillin through a PICC line for several weeks. The patient would be largely unable to comply with this treatment and the family did not feel that it was appropriate to keep him sedated with medications and place him in a detention facility so that he could receive this treatment. Ultimately, they also were informed that there is no likelihood that in the presence of neurosyphilis if it were treated that his current symptoms would reverse or if there would be any further damage as a result of no treatment. Ultimately, because the patient would certainly not comply with the lengthy treatment, the LP was not pursued and Neurology also concluded that most likely this patient has dementia with delusional component and they were unable to obtain MRI to further differentiate between frontotemporal dementia, vascular dementia, or Alzheimer dementia, although clinically this patient has signs of both Alzheimer dementia and frontotemporal dementia. From a behavioral standpoint, this patient was placed back on Seroquel 50 mg p.o. b.i.d. at this time from 50 mg p.o. q.h.s. and also Psychiatry recommended that Depakote 125 mg p.o. b.i.d. be added. With the addition of medications and while watching here, he became stabilized and family felt comfortable having him return to home. We shared our concerns about a safe living situation with his , Ivette and he also has a daughter and son who are out of state and are involved in his care. They felt comfortable taking him home and did not have any interest in pursuing long-term care facilities, although we did have the discussion about starting a conversation with Office of Aging and pursuing guardianship. Furthermore, we offered VNA services, which were ordered upon discharge. We suggested that the patient attend adult daycare for socialization and to diminish caregiver burden and many handouts were given about resources in the area for caring for family members with dementia. His , Ivette, had no further questions and his plan of care and prognosis was described to all 3 of his family members. 2. Dementia. This is a subacute process and is best described in above problem. 3. Anemia. This is very mild and we felt needed no intervention. 4. Hypertension. The patient did have mild hypertension once he was transferred from the medical floor. He presented with hypertensive urgency, wholly asymptomatic, thought to be secondary to agitation in the setting of being brought to the hospital by EMS and the police. After calming down, his blood pressure normalized and was about 130 to 140 systolics. We did start him on low-dose lisinopril 5 mg p.o. daily and he tolerated it very well while he was here in the hospital. DATA OBTAINED IN THIS HOSPITALIZATION: As follows: A brain CT was done on 08/25/18 that showed no intracranial pathology. EKG was done that showed normal sinus rhythm. Labs were drawn that showed mild anemia on CBC, an unremarkable BMP, and of note the IgG syphilis antibody positive, but the RPR negative, which is most consistent with prior exposure and treatment to syphilis as opposed to active syphilis, although the testing for this cannot be certain. No micro was obtained. SPECIALISTS THAT CONSULTED: Psychiatry and Neurology. THINGS TO FOLLOW UP ON POSTDISCHARGE: 1. Neurocognitive disorder with worsening delusions. --Most concerning to this is his disposition and discharge to home. Several family meetings in person and on phone were held with his and his kids and all were in agreeance to take Mr. Wood home and continue to try to manage there with more supports by adding VNA services and exploring adult daycare, which they had been looking into prior to admission. They also felt that he would be more agreeable to taking his medications once he got home. We did advise them to pursue conservatorship as an outpatient process and to meet with Office of Aging to help put more supports into the home to make this a safe living environment for all parties. In terms of medications, Depakote was added, Seroquel was increased and both of these can be increased if his paranoia and delusions continue to be a problem. Adherence may be an issue, although most likely the combination of antipsychotic and mood stabilizer will be the most helpful in this case. He does have a followup appointment with Neurology in November, which is likely the soonest that could be arranged given the waiting list and we encouraged them to keep this appointment. On the day of discharge, Mr. Carmelo Wood is ambulating. He is eating and drinking and voiding normally. He has no acute complaints. He is oriented to himself only at baseline and confused to the situation. He has no complaints on review of systems. His family are in agreeance for discharge to home. This is very much what they would want and they have no further questions for us. If there are any questions about the care of this gentleman, please do not hesitate to reach out to us. TIME SPENT: 45 minutes was spent in the planning of this discharge with over half of that spent in direct care of the patient at the bedside. [id number]/[facility] #: [id number] DARIAN
--- NOTE | 2018-09-01 08:58 | HP ---
HISTORY AND PHYSICAL: DATE OF ADMISSION: 08/25/18 PRIMARY CARE PROVIDER: Stefany Duncan NP. HEALTHCARE PROXY: The patient's . CODE STATUS: Full. CHIEF COMPLAINT: Hypertension and altered mental status. SOURCE OF INFORMATION: HPI is obtained from review of medical chart. The patient is a poor historian. HISTORY OF PRESENT ILLNESS: An 88-year-old male with past medical history of dementia, neurocognitive disorder with behavioral disturbances, who was brought into the emergency room with increasing paranoias and delusions. His says that his paranoias and delusions have been present for months but has had increased in intensity to the point where it has escalated that she feels she no longer lives in a safe home environment. Initially, patient was admitted to the [facility], though Medicine was asked to accept the patient given he has persistent hypertension on the [facility] floor. On assessment at the [facility], the patient is noted to be hypertensive with systolic 175/90 on manuals. He has no documented history of hypertension. He is not on any antihypertensives. He denies chest pain, shortness of breath, headaches, neurologic symptoms, GI or complaints. He is noted to be very talkative and he is oriented to himself but not to situation, date, or time. He is persistently bringing up delusions about the government and people watching him as well as his having affairs, making the rest of the HPI impossible. Ultimately, he is transferred from the [facility] to the medical service on date of . PAST MEDICAL HISTORY: History of prostate cancer, history of ileocecectomy laparoscopic in 2013, history of dementia for the last 2 years and a recent subacute delusional disorder thought to be as a result from his dementia. PAST SURGICAL HISTORY: As above. FAMILY HISTORY: Noncontributory. SOCIAL HISTORY: Lives with his at home. Does have 2 children who are out of state. He reports occasional alcohol use. Lifetime non-tobacco use. Denies substance use. REVIEW OF SYSTEMS: Unable to be obtained as per HPI. PHYSICAL EXAMINATION GENERAL: This is pleasant man in no acute distress. He is talking a lot. VITAL SIGNS: The patient's blood pressure is 177/105, pulse rate 76, temperature 98.6, oxygen 100% on room air. HEENT: His oropharynx is clear. His mucous membranes are moist. NECK: He has no cervical LAD. RESPIRATORY: His lungs are clear to auscultation bilaterally. CARDIOVASCULAR: He has regular rate and rhythm with no murmurs, rubs, or gallops. ABDOMEN: He is nontender, nondistended with normoactive bowel sounds. EXTREMITIES: He has full range of motion in all 4 extremities. SKIN: He has no rashes or ulcers. NEUROLOGIC: He is oriented to himself. He has has no gross focal deficits and cranial nerves II through XII are intact. LABORATORY DATA: The patient has a white blood cell count 7.6, hemoglobin 12.3 , hematocrit 37, platelets 306,000. Sodium 141, potassium 4.1, chloride 110, CO2 of 23, BUN 24, creatinine 0.89. IMAGING: Imaging was done including CT head that showed no acute intracranial process and chronic microvascular changes. ASSESSMENT/PLAN: This is an 88-year-old male with past medical history of dementia and subacute delusional process for 2 to 3 months who presented to the emergency room with paranoia and delusional thoughts who was initially admitted to the [facility]. He was noted to be hypertensive on arrival and discharged from [facility] and accepted to Medicine for persistent asymptomatic hypertension as well as dementia workup. PROBLEMS: 1. Hypertension. We will start amlodipine 10 mg and lisinopril 10 mg. 2. Delusional disorder in the setting of dementia. We will check TSH, RPR, folate, and B12. We will consult Neurology. A CT head has been ordered and shows no acute intracranial pathology. The patient is refusing MRI. We will continue to ask Psychiatry to follow from the geropsych standpoint and they have added Depakote which we will continue. 3. FEN. Full unrestricted diet. 4. DVT prophylaxis, ambulatory. 5. Code status full. 6. Disposition. The patient is stable to the medical floor. Plan of care discussed with patient's family and they are in agreement. TIME SPENT: Forty-five minutes were spent in the planning and execution of this history and physical as well as his admission with over half of that spent directly at the bedside of the patient providing patient care. [id number]/[facility] #: [id number] DARIAN
[2018-09-01 17:01] LABS: T.Pallidum TP-PA Indeterminate (Negative)
== END 2018-08-27 18:40 | disposition home health service (06) | DRG 57 ==
LOC: ED 21:28 → BSU 08-25 02:55 → ED 08-25 04:52 → MEDTELE 08-25 17:50
PROVIDERS: ADMIT Psychiatry & Neurology Psychiatry; ATTEND Internal Medicine
DX: G31.09 Other frontotemporal neurocognitive disorder (principal); F02.81 Dementia in other diseases classified elsewhere, unspecified severity, with behavioral disturbance; I10 Essential (primary) hypertension; A53.9 Syphilis, unspecified; F22 Delusional disorders; I16.0 Hypertensive urgency; D64.9 Anemia, unspecified; Z81.8 Family history of other mental and behavioral disorders; Z90.49 Acquired absence of other specified parts of digestive tract; Z72.89 Other problems related to lifestyle; Z87.891 Personal history of nicotine dependence; Z85.46 Personal history of malignant neoplasm of prostate
CPT/HCPCS: 36415; 70450; 80048; 80053; 80061; 80307; 80320; 80329; 81003; 82607; 83036; 84443; 84484; 85025; 86592; 86780; 93005; 99283; A9270-GY; G0480